=== PATIENT | female | born 1935 | race Caucasian/White ===

== ENCOUNTER 2016-09-10 12:29 | Inpatient (IN) | payer OTHER, MEDICARE ==
[2016-09-10 12:43] VITALS: BMI 15.6
[2016-09-10] MEDS ORDERED: SODIUM CHLORIDE 0.9% 1000 ML INFUS.BAG IV ONE (13:18)
[2016-09-10 13:56] LABS: BASOPHIL 0.4 % (0-2.0); MCH 29.5 pg (25.7-33.7); MCHC 33.9 g/dl (32.0-36.0); MEAN PLT VOLUME 8.3 fl (7.5-11.1); NEUTROPHILS 92.5 % (42.8-82.8); PLATELET COUNT 301 K/MM3 (134-434); RDW 12.5 % (11.6-15.6); WHITE BLOOD COUNT 19.5 K/mm3 (4.0-10.0)
--- NOTE | 2016-09-10 13:58 | PDOC ---
History of Present Illness - General Chief Complaint: Injury Stated Complaint: FALL Time Seen by Provider: 09/10/16 12:52 History Source: Patient, Family Exam Limitations: No Limitations - History of Present Illness Initial Comments: 09/10/16 13:44 The patient is a 81F with a PMH of MVP and bullous pemphigoid who presents to the ED after sustaining 2 falls. 1 week ago the patient tripped over a sidewalk which she normally walks on without problem and sustained injury to her R knee. She saw her PCP who prescribed tramadol and prednisone to help with swelling. This morning she rolled out of bed onto her L elbow and sustained a laceration to her L eyebrow, 2 cm in length. She states that she's had recent loss of balance. No LOC, blood thinners, no lightheadedness with today's fall. Allergies: NKDA Soc: Lives by herself, has an aide but family states she is taking less care of herself. 09/10/16 16:41 Past History - Past Medical History Allergies/Adverse Reactions: Allergies Allergy/AdvReac Type Severity Reaction Status Date / Time No Known Allergies Allergy Verified 09/10/16 12:43 Home Medications: Ambulatory Orders Bisacodyl Suppository [Dulcolax Suppository -] 10 mg RC PRN PRN 09/10/16 Dexamethasone [Decadron -] 0 mg PO DAILY 09/10/16 Furosemide [Lasix] 20 mg PO DAILY 09/10/16 Moxifloxacin HCl [Vigamox 0.5% Eye Drops -] 3 ml OD DAILY 09/10/16 Prednisone [Deltasone -] 5 mg PO TID 09/10/16 Timolol 0.5% [Timoptic 0.5%] 1 drop OD TID 09/10/16 Tramadol HCl 50 mg PO BID PRN 09/10/16 Thyroid Disease: Yes Other medical history: AUTOIMMUNE DISEASE. - Psycho/Social/Smoking Cessation Hx Anxiety: No Suicidal Ideation: No Smoking History: Never smoked Have you smoked in the past 12 months: No 'Breaking Loose' booklet given: 10/30/14 Hx Alcohol Use: No Drug/Substance Use Hx: No Substance Use Type: None Review of Systems - Review of Systems Able to Perform ROS?: Yes Is the patient limited Syriac proficient: No Constitutional: No: Chills, Fever HEENTM: No: Blurred Vision, Recent change in vision, Double Vision Respiratory: No: Shortness of Breath Cardiac (ROS): No: Chest Pain Neurological: No: Headache, Numbness, Tingling *Physical Exam - Vital Signs Last Vital Signs Temp Pulse Resp BP Pulse Ox 97.8 F 64 18 92/58 100 09/10/16 12:38 09/10/16 12:38 09/10/16 12:38 09/10/16 12:38 09/10/16 12:38 - Physical Exam General Appearance: Yes: Nourished, Thin. No: Mild Distress HEENT: positive: Normal Voice, Hearing Grossly Normal Respiratory/Chest: positive: Lungs Clear, Normal Breath Sounds. negative: Chest Tender, Respiratory Distress, Crackles, Rales, Rhonchi Cardiovascular: positive: Regular Rhythm, Regular Rate, S1, S2. negative: Tachycardia, Diastolic Murmur, Systolic Murmur Gastrointestinal/Abdominal: positive: Flat, Soft, Hernia, Other (R inguinal hernia, nontender). negative: Tender Extremity: positive: Other (Bruising over L elbow, more swollen than R elbow. No tenderness; no tenderness over R knee, swelling from R knee to R ankle). negative: Coldness, Cyanosis Integumentary: positive: Bruising (L elbow) Neurologic: positive: Fully Oriented, Alert, Normal Mood/Affect Procedures - Splinting Splint Location: Left: Elbow, Right: Knee Pre-Proc Neuro Vasc Exam: normal Pre-Made Type: knee immobilizer Hand-Made Type: orthoglass Splint Type: Yes: Short Arm Post-Proc Neuro Vasc Exam: normal Darvin Bandage: 3" Sling: Yes Complications: No - Laceration/Wound Repair Left Upper Face Wound Length: to 2.5 cm Wound Explored: clean Wound's Depth, Shape: superficial, irregular Irrigated w/ Saline: Yes Betadine Prep: No Anesthesia: 1% Lidocaine Amount of Anesthetic (ccs): 3 (cc) Wound Debrided: minimal Wound Repaired With: Sutures Suture Size/Type: 6:0 Number of Sutures: 5 Layer Closure: No Sterile Dressing Applied: Yes Splint Applied: No Sling Applied: No ED Treatment Course - LABORATORY CBC & Chemistry Diagram: 09/10/16 13:25 09/10/16 13:25 - RADIOLOGY Radiology Studies Ordered: Category Date Time Status HEAD CT WITHOUT CONTRAST [CT] Stat CT Scan 09/10/16 13:23 Ordered ELBOW-LEFT [RAD] Stat Radiology 09/10/16 13:16 Ordered KNEE 3 POS-RIGHT [RAD] Stat Radiology 09/10/16 13:16 Ordered - Medications Given in the ED: ED Medications Discontinued Medications Generic Name Dose Route Start Last Admin Trade Name Lorraine PRN Reason Stop Dose Admin Sodium Chloride 250 ml 09/10/16 13:18 09/10/16 13:37 Normal Saline - IV 09/10/16 13:19 250 ml ONCE ONE Administration Medical Decision Making - Medical Decision Making 09/10/16 14:10 The patient is a 81F with a hx of MVP and bullous pemphigoid who presents after sustaining 2 falls. The first fall was 1 week ago and she felt pain in her R knee. Second fall was today where she sustained a L eyebrow laceration and L elbow swelling. She is not tender at all. Family is concerned about her status and ability to walk and perform activities of daily living. Family states that the patient was admitted 2 year ago for failure to thrive. Family is concerned about continuous weakness and inability to walk/balance herself. I have ordered basic labs and imaging of all the appropriate/affected areas by her fall. 09/10/16 15:51 Patient has a WBC count of 19.5 Na: 123 K: 2.4 R patellar fracture L olecrenon fracture posteriorly I have ordered fluid replacement and K and mag replacement. I will be splinting her olecranon and placing her R leg in a splint. She will be admitted. 09/10/16 18:22 *DC/Admit/Observation/Transfer Diagnosis at time of Disposition: Hyponatremia, Hypokalemia, Fracture - Discharge Dispostion Condition at time of disposition: Stable Admit: Yes - Referrals Referrals: Mario Ng MD [Primary Care Provider] - - Attestations Physician Attestion: 09/10/16 16:46 I, Dr. Len Pittman, attest that this document has been prepared under my direction and personally reviewed by me in its entirety. I further attest, that it accurately reflects all work, treatment, procedures and medical decision -making performed by me.
[2016-09-10] MEDS ORDERED: DIPHTH,PERTUSS(ACELL),TET 0.5 ML DISP.SYRIN IM ONE (13:59)
[2016-09-10 14:37] LABS: ANION GAP 15 (8-16); CALCIUM 8.2 mg/dL (8.5-10.1); CO2 37 mmol/L (21-32); CREATININE 0.4 mg/dL (0.55-1.02); GLUCOSE,RANDOM 115 mg/dL (74-106); SGOT/AST 34 U/L (15-37); SGPT/ALT 31 U/L (12-78)
--- NOTE | 2016-09-10 14:37 | PDOC ---
Attending Attestation - Resident Resident Name: Len Pittman - ED Attending Attestation I have performed the following: I have examined & evaluated the patient, The case was reviewed & discussed with the resident, I agree w/resident's findings & plan, Exceptions are as noted - HPI HPI: 09/10/16 14:32 81-year-old female with past medical history of mitral valve prolapse presents with mechanical fall. Patient had fell one week ago and started developing right knee pain and swelling where she was treated with tramadol and prednisone. Today, patient mechanical fall and landed on her left side, about left elbow and sustained a small laceration to the left eyebrow. No loss of conscious. No headaches. Does not take any blood thinners. Came to the ED for further evaluation. Last tetanus status is unknown. - Physicial Exam PE: 09/10/16 14:35 GENERAL: Awake, alert, and fully oriented, in no acute distress. HEAD: No signs of trauma EYES: PERRLA, EOMI, sclera anicteric, conjunctiva clear ENT: Auricles normal inspection, hearing grossly normal, nares patent, oropharynx clear without exudates. NECK: Normal ROM, supple, no lymphadenopathy, JVD, or masses LUNGS: Breath sounds equal, clear to auscultation bilaterally. No wheezes, and no crackles HEART: Regular rate and rhythm, normal S1 and S2, no murmurs, rubs or gallops ABDOMEN: Soft, nontender, normoactive bowel sounds. No guarding, no rebound. No masses EXTREMITIES: Normal range of motion, no edema. LUE: 2+ radial pulse. sensation intact throughout. FROM Left elbow. Ecchymosis and swelling of left elbow. no tenderness elicited. RLE: mild edema R knee. Negative anterior, posterior drawer test. Negative varus and vagus. NEUROLOGICAL: Cranial nerves II through XII grossly intact. Normal speech, normal gait SKIN: Warm, Dry, normal turgor, no rashes or lesions noted. ~2 cm left lateral eyebrow laceration - Medical Decision Making 09/10/16 14:37 Vital Signs Temp Pulse Resp BP Pulse Ox 97.8 F 64 18 92/58 100 09/10/16 12:38 09/10/16 12:38 09/10/16 12:38 09/10/16 12:38 09/10/16 12:38 I agree with resident plan for head CT, left elbow xray and RLE ultrasound ( though I suspect R knee swelling is liklely to injury last week). Lac repair Update tetanus CBC, BMP 09/10/16 13:25 WBC 19.5 Will need to check UA for UTI (may be reason why patient is falling) 09/10/16 15:22 CMP Sodium 123 mmol/L (136-145) L* 09/10/16 13:25 Potassium 2.3 mmol/L (3.5-5.1) L* D 09/10/16 13:25 Chloride 71 mmol/L (98-107) L D 09/10/16 13:25 Carbon Dioxide 37 mmol/L (21-32) H D 09/10/16 13:25 Anion Gap 15 (8-16) 09/10/16 13:25 BUN 21 mg/dL (7-18) H D 09/10/16 13:25 Creatinine 0.4 mg/dL (0.55-1.02) L D 09/10/16 13:25 Creat Clearance w eGFR > 60 (>60) 09/10/16 13:25 Random Glucose 115 mg/dL (74-106) H 09/10/16 13:25 Calcium 8.2 mg/dL (8.5-10.1) L 09/10/16 13:25 Total Bilirubin 1.2 mg/dL (0.2-1.0) H D 09/10/16 13:25 AST 34 U/L (15-37) D 09/10/16 13:25 ALT 31 U/L (12-78) 09/10/16 13:25 Alkaline Phosphatase 49 U/L (45-117) D 09/10/16 13:25 Total Protein 5.6 g/dl (6.4-8.2) L 09/10/16 13:25 Albumin 3.0 g/dl (3.4-5.0) L D 09/10/16 13:25 Left elbow and right knee fracture. Will need to splint left elbow and place in R knee immobilizer. Ortho consultation UA pending. Needs admission. 09/10/16 16:38 Posterior elbow splint applied and R knee immoblizer placed.
[2016-09-10 14:39] LABS: ALK PHOS 49 U/L (45-117); BILIRUBIN,TOTAL 1.2 mg/dL (0.2-1.0); TOT PROT 5.6 g/dl (6.4-8.2)
[2016-09-10] MEDS ORDERED: POTASSIUM CHLORIDE TABS 20 MEQ TABLET.ER (FP) PO ONE ×4 (14:50→15:57)
[2016-09-10] MEDS ORDERED: MAGNESIUM SULF 50% (8.12 MEQ/2 ML-1 GM VIAL) IVPB ONE (14:51)
[2016-09-10] MEDS ORDERED: MAGNESIUM SULF 50% (8.12 MEQ/2 ML-1 GM VIAL) ONE (15:49)
[2016-09-10] MEDS ORDERED: MOXIFLOXACIN HCL 0.5% OPHTHALMIC 3 ML BOTTLE OD ONE (16:33)
[2016-09-10] MEDS ORDERED: TIMOLOL MALEATE 0.5% GFS OPHTHALMIC SOLN 5 ML BOTTLE OD ONE (16:33)
[2016-09-10 17:05] LABS: URINE APPEARANCE SLCLOUDY; URINE BILIRUBIN NEGATIVE (NEGATIVE); URINE BLOOD NEGATIVE (NEGATIVE); URINE COLOR AMBER; URINE GLUCOSE (UA) NEGATIVE (NEGATIVE); URINE KETONE NEGATIVE (NEGATIVE); URINE LEUK ESTERASE NEGATIVE (NEGATIVE); URINE NITRITE NEGATIVE (NEGATIVE); URINE PROTEIN NEGATIVE (NEGATIVE); URINE UROBILINOGEN NEGATIVE mg/dL (0.2-1.0)
[2016-09-10] MEDS ORDERED: ACETAMINOPHEN 325 MG TABLET (FP) PO PRN (19:59)
--- NOTE | 2016-09-10 22:16 | CON.CARD ---
Consult Consult Specialty:: Cardiology - History of Present Illness History of Present Illness: The patient is a 81F with a PMH of MVP and bullous pemphigoid who presents to the ED after sustaining 2 falls. 1 week ago the patient tripped over a sidewalk which she normally walks on without problem and sustained injury to her R knee. She saw her PCP who prescribed tramadol and prednisone to help with swelling. This morning she rolled out of bed onto her L elbow and sustained a laceration to her L eyebrow, 2 cm in length. She states that she's had recent loss of balance. No LOC, blood thinners, no lightheadedness with today's fall. Allergies: NKDA Soc: Lives by herself, has an aide but family states she is taking less care of herself. - History Source History Provided By: Patient, Medical Record - Past Medical History Cardio/Vascular: Yes: Mitral Insufficiency Infectious Disease: Yes: Other (SINUSITIS) Dermatology: Yes: Other (BOLLOUS PEMPHIGOID) - Alcohol/Substance Use Hx Alcohol Use: No - Smoking History Smoking history: Never smoked Have you smoked in the past 12 months: No Home Medications - Allergies Allergies/Adverse Reactions: Allergies Allergy/AdvReac Type Severity Reaction Status Date / Time No Known Allergies Allergy Verified 09/10/16 12:43 - Home Medications Home Medications: Ambulatory Orders Bisacodyl Suppository [Dulcolax Suppository -] 10 mg RC PRN PRN 09/10/16 Dexamethasone [Decadron -] 12 mg PO DAILY 09/10/16 Dorzolamide HCl [Trusopt 2%] 1 drop TID 09/10/16 Furosemide [Lasix] 20 mg PO DAILY 09/10/16 Moxifloxacin HCl [Vigamox 0.5% Eye Drops -] 3 ml OD DAILY 09/10/16 Mycophenolate Mofetil [Cellcept] 500 mg PO 09/10/16 Prednisolone 1% Ophthalmic [Pred Forte 1% -] 5 ml OP DAILY 09/10/16 Timolol 0.5% [Timoptic 0.5%] 1 drop OD DAILY 09/10/16 Tramadol HCl 50 mg PO BID PRN 09/10/16 Review of Systems - Review of Systems Constitutional: reports: No Symptoms Eyes: reports: No Symptoms HENT: reports: No Symptoms Neck: reports: No Symptoms Cardiovascular: reports: No Symptoms Gastrointestinal: reports: No Symptoms Genitourinary: reports: No Symptoms Breasts: reports: No Symptoms Reported Musculoskeletal: reports: No Symptoms Integumentary: reports: No Symptoms Neurological: reports: No Symptoms Endocrine: reports: No Symptoms Hematology/Lymphatic: reports: No Symptoms Psychiatric: reports: No Symptoms Vital Signs: Vital Signs Temperature 98.1 F 09/10/16 19:00 Pulse Rate 65 09/10/16 19:02 Respiratory Rate 18 09/10/16 19:02 Blood Pressure 108/63 09/10/16 19:02 O2 Sat by Pulse Oximetry (%) 98 09/10/16 19:02 Constitutional: Yes: Well Nourished, No Distress, Calm Eyes: Yes: WNL, Conjunctiva Clear, EOM Intact HENT: Yes: WNL, Atraumatic, Normocephalic Neck: Yes: WNL, Supple, Trachea Midline Respiratory: Yes: WNL, Regular, CTA Bilaterally Gastrointestinal: Yes: WNL, Normal Bowel Sounds Renal/: Yes: WNL Cardiovascular: Yes: Regular Rate and Rhythm Heart Sounds: Yes: S1, S2 Murmur: Yes: Systolic Murmur, Grade 2 Musculoskeletal: Yes: WNL Extremities: Yes: WNL Integumentary: Yes: WNL Neurological: Yes: WNL, Alert, Oriented ...Motor Strength: WNL Psychiatric: Yes: WNL, Alert, Oriented - Other Data Labs, Other Data: Laboratory Tests 09/10/16 09/10/16 09/10/16 13:25 13:25 16:40 WBC 19.5 H D RBC 4.08 Hgb 12.0 Hct 35.5 MCV 87.0 MCH 29.5 MCHC 33.9 RDW 12.5 D Plt Count 301 D MPV 8.3 D Neutrophils % 92.5 H Lymphocytes % 3.1 L D Monocytes % 4.0 Eosinophils % 0.0 Basophils % 0.4 Sodium 123 L* Potassium 2.3 L* D Chloride 71 L D Carbon Dioxide 37 H D Anion Gap 15 BUN 21 H D Creatinine 0.4 L D Creat Clearance w eGFR > 60 Random Glucose 115 H Calcium 8.2 L Total Bilirubin 1.2 H D AST 34 D ALT 31 Alkaline Phosphatase 49 D Total Protein 5.6 L Albumin 3.0 L D Urine Color Jaycee Urine Appearance Slcloudy Urine pH 7.0 Ur Specific [place] 1.015 Urine Protein Negative Urine Glucose (UA) Negative Urine Ketones Negative Urine Blood Negative Urine Nitrite Negative Urine Bilirubin Negative Urine Urobilinogen Negative Ur Leukocyte Esterase Negative 09/11/16 09/11/16 09/11/16 00:30 00:30 06:20 WBC 15.1 H 18.1 H RBC 3.89 4.15 Hgb 11.7 12.3 Hct 33.8 36.6 MCV 86.9 88.1 MCH 30.2 29.5 MCHC 34.8 33.5 RDW 12.8 12.5 Plt Count 312 287 MPV 7.8 7.9 Neutrophils % 84.1 H Lymphocytes % 7.0 L D Monocytes % 8.7 D Eosinophils % 0.1 D Basophils % 0.1 Sodium 127 L Potassium 2.9 L* D Chloride 82 L D Carbon Dioxide 33 H Anion Gap 12 BUN 15 D Creatinine 0.6 D Creat Clearance w eGFR > 60 Random Glucose 132 H Calcium 7.9 L Total Bilirubin 0.9 D AST 20 D ALT 26 Alkaline Phosphatase 51 Total Protein 5.0 L Albumin 2.7 L Urine Color Urine Appearance Urine pH Ur Specific [place] Urine Protein Urine Glucose (UA) Urine Ketones Urine Blood Urine Nitrite Urine Bilirubin Urine Urobilinogen Ur Leukocyte Esterase Imaging - Results EKG: Image Reviewed (sr rep abn) Problem List - Problems (1) Abnormal CXR Code(s): R93.8 - ABNORMAL FINDINGS ON DIAGNOSTIC IMAGING OF BODY STRUCTURES (2) Bullous pemphigoid Code(s): L12.0 - BULLOUS PEMPHIGOID (3) Edema Code(s): R60.9 - EDEMA, UNSPECIFIED (4) Fracture Code(s): T14.8 - OTHER INJURY OF UNSPECIFIED BODY REGION (5) Heart murmur Code(s): R01.1 - CARDIAC MURMUR, UNSPECIFIED (6) Hypokalemia Code(s): E87.6 - HYPOKALEMIA (7) Hyponatremia Code(s): E87.1 - HYPO-OSMOLALITY AND HYPONATREMIA (8) Valvular heart disease Code(s): I38 - ENDOCARDITIS, VALVE UNSPECIFIED Assessment/Plan imp; MVP severe MR ? MV veg. pulm HTN s/p falls hyponatremia leukocytosis chf plan cxr IV lasix free water restriction ID/renal w/u repeat the echo cont telemetry
[2016-09-10] MEDS: TIMOLOL 0.5% OPHTHALMIC SOL 5 ML BOTTLE OD SCH (22:57)
[2016-09-10] MEDS: predniSONE 5 MG TABLET (UD) PO SCH (22:58)
[2016-09-10] MEDS: traMADol HCL 50 MG TABLET PO PRN (22:58)
[2016-09-10] MEDS: BISACODYL 10 MG SUPP.RECT RC PRN (22:58)
[2016-09-10] MEDS: SODIUM CHLORIDE 1,000 ML IV SCH (23:08)
[2016-09-11 00:44] LABS: MCH 30.2 pg (25.7-33.7); MCHC 34.8 g/dl (32.0-36.0); MEAN CELL VOLUME 86.9 fl (80-96); MEAN PLT VOLUME 7.8 fl (7.5-11.1); PLATELET COUNT 312 K/MM3 (134-434); RDW 12.8 % (11.6-15.6); WHITE BLOOD COUNT 15.1 K/mm3 (4.0-10.0)
[2016-09-11 01:26] LABS: ALBUMIN 2.7 g/dl (3.4-5.0); ANION GAP 12 (8-16); BILIRUBIN,TOTAL 0.9 mg/dL (0.2-1.0); CALCIUM 7.9 mg/dL (8.5-10.1); CO2 33 mmol/L (21-32); CREATININE 0.6 mg/dL (0.55-1.02); GLUCOSE,RANDOM 132 mg/dL (74-106); SGOT/AST 20 U/L (15-37); SGPT/ALT 26 U/L (12-78)
[2016-09-11 01:27] LABS: ALK PHOS 51 U/L (45-117)
[2016-09-11] MEDS ORDERED: POTASSIUM CHLORIDE ORAL LIQUID 20 MEQ/15 ML PO ONE (01:45)
[2016-09-11] MEDS: KCL 10 MEQ IVPB 100 ML IVPB SCH ×3 (01:57→04:45)
[2016-09-11] MEDS: TIMOLOL 0.5% OPHTHALMIC SOL 5 ML BOTTLE OD SCH ×3 (06:15→22:30)
[2016-09-11] MEDS: predniSONE 5 MG TABLET (UD) PO SCH ×3 (06:15→22:29)
[2016-09-11 07:20] LABS: BASOPHIL 0.1 % (0-2.0); EOSINOPHIL 0.1 % (0-4.5); MCH 29.5 pg (25.7-33.7); MCHC 33.5 g/dl (32.0-36.0); MEAN CELL VOLUME 88.1 fl (80-96); MEAN PLT VOLUME 7.9 fl (7.5-11.1); NEUTROPHILS 84.1 % (42.8-82.8); PLATELET COUNT 287 K/MM3 (134-434); RDW 12.5 % (11.6-15.6); WHITE BLOOD COUNT 18.1 K/mm3 (4.0-10.0)
--- NOTE | 2016-09-11 08:48 | PN ---
Progress Note, Physician History of Present Illness: The patient is a 81F with a PMH of MVP and bullous pemphigoid who presents to the ED after sustaining 2 falls. 1 week ago the patient tripped over a sidewalk which she normally walks on without problem and sustained injury to her R knee. She saw her PCP who prescribed tramadol and prednisone to help with swelling. This morning she rolled out of bed onto her L elbow and sustained a laceration to her L eyebrow, 2 cm in length. She states that she's had recent loss of balance. No LOC, blood thinners, no lightheadedness with today's fall. Allergies: NKDA Soc: Lives by herself, has an aide but family states she is taking less care of herself. - Current Medication List Current Medications: Active Medications Acetaminophen (Tylenol -) 650 mg PO Q4H PRN PRN Reason: FEVER OR PAIN Bisacodyl (Dulcolax Suppository -) 10 mg RC PRN PRN PRN Reason: no bowel movement Last Admin: 09/10/16 22:58 Dose: 10 mg Furosemide (Lasix -) 20 mg PO DAILY [facility] Sodium Chloride (Normal Saline -) 1,000 mls @ 75 mls/hr IV ASDIR [facility] Last Admin: 09/10/16 23:08 Dose: 75 mls/hr Moxifloxacin HCl (Vigamox 0.5% Eye Drops -) 1 drop OD DAILY [facility] Prednisone (Deltasone -) 5 mg PO TID [facility] Last Admin: 09/11/16 06:15 Dose: Not Given Timolol Maleate (Timoptic 0.5%) 1 drop OD TID [facility] Last Admin: 09/11/16 06:15 Dose: Not Given Tramadol HCl (Ultram -) 50 mg PO BID PRN PRN Reason: PAIN Last Admin: 09/10/16 22:58 Dose: 50 mg - Objective Vital Signs: Vital Signs Temperature 98.4 F 09/11/16 06:00 Pulse Rate 62 09/11/16 06:00 Respiratory Rate 18 09/11/16 06:00 Blood Pressure 92/52 09/11/16 06:00 O2 Sat by Pulse Oximetry (%) 99 09/10/16 22:27 Eyes: Yes: WNL, Conjunctiva Clear, EOM Intact HENT: Yes: WNL, Atraumatic, Normocephalic Neck: Yes: WNL, Supple, Trachea Midline Cardiovascular: Yes: Regular Rate and Rhythm, Murmur, S1, S2 Respiratory: Yes: WNL, Regular, CTA Bilaterally Gastrointestinal: Yes: WNL, Normal Bowel Sounds Genitourinary: Yes: WNL Musculoskeletal: Yes: WNL Extremities: Yes: WNL Edema: No Integumentary: Yes: WNL Neurological: Yes: WNL, Alert, Oriented ...Motor Strength: WNL Psychiatric: Yes: WNL Labs: CBC, BMP 09/11/16 06:20 09/11/16 00:30 Problem List - Problems (1) Abnormal CXR Code(s): R93.8 - ABNORMAL FINDINGS ON DIAGNOSTIC IMAGING OF BODY STRUCTURES (2) Bullous pemphigoid Code(s): L12.0 - BULLOUS PEMPHIGOID (3) Edema Code(s): R60.9 - EDEMA, UNSPECIFIED (4) Fracture Code(s): T14.8 - OTHER INJURY OF UNSPECIFIED BODY REGION (5) Heart murmur Code(s): R01.1 - CARDIAC MURMUR, UNSPECIFIED (6) Hypokalemia Code(s): E87.6 - HYPOKALEMIA (7) Hyponatremia Code(s): E87.1 - HYPO-OSMOLALITY AND HYPONATREMIA (8) Valvular heart disease Code(s): I38 - ENDOCARDITIS, VALVE UNSPECIFIED Assessment/Plan imp; MVP severe MR ? MV veg. pulm HTN s/p falls hyponatremia leukocytosis chf plan cxr IV lasix free water restriction ID/renal w/u repeat the echo cont telemetry
[2016-09-11] MEDS ORDERED: PT OWN MED DRAWER 7, Y5N ONE ×3 (09:23→22:12)
[2016-09-11] MEDS: MOXIFLOXACIN HCL 0.5% OPHTHALMIC 3 ML BOTTLE OD SCH (09:34)
[2016-09-11 09:59] LABS: ALBUMIN 2.7 g/dl (3.4-5.0); ANION GAP 8 (8-16); CO2 32 mmol/L (21-32); GLUCOSE,RANDOM 97 mg/dL (74-106); MAGNESIUM 2.9 mg/dL (1.8-2.4)
[2016-09-11] MEDS ORDERED: FUROSEMIDE 20 MG TABLET (FP) PO SCH (10:00)
[2016-09-11] MEDS ORDERED: FUROSEMIDE 40 MG/4 ML INJECTABLE VIAL IVPB SCH (10:00)
[2016-09-11 10:04] LABS: ALK PHOS 47 U/L (45-117); BILIRUBIN,TOTAL 0.8 mg/dL (0.2-1.0); CHOLESTEROL 172 mg/dL (50-200); CREATININE 0.4 mg/dL (0.55-1.02); LDL CHOLESTEROL (ONLY SJRH) 88 mg/dL (5-100); SGOT/AST 22 U/L (15-37); SGPT/ALT 28 U/L (12-78); TOT PROT 5.3 g/dl (6.4-8.2); TROPONIN I < 0.02 ng/ml (0.00-0.05)
--- NOTE | 2016-09-11 11:56 | CON.NEP ---
Consult Consult Specialty:: Nephrology Reason for Consultation:: multiple electrolyte abn- hyponatremia and hypokalemia - History of Present Illness Chief Complaint: s/p fall- felt well prior to that History of Present Illness: s/p fall labs on admission show severe hyponatremia Na 123 and hypokalemia 2.3 she denies decreased appetite or food intake, she has been on furosemide and one month ago was told that her sodium and potassium were low she also denies any change in physical well being prior to the fall, indepent with adls and went line dancing with her sister ias a pastime cardiology eval noted she has history of mvp she is concerned about glaucoma and for that reason avoids sweetened foods or juices - History Source History Provided By: Patient, Medical Record Limitations to Obtaining History: No Limitations - Past Medical History Cardio/Vascular: Yes: Mitral Insufficiency Infectious Disease: Yes: Other (SINUSITIS) Dermatology: Yes: Other (BOLLOUS PEMPHIGOID) - Alcohol/Substance Use Hx Alcohol Use: No - Smoking History Smoking history: Never smoked Have you smoked in the past 12 months: No Home Medications - Allergies Allergies/Adverse Reactions: Allergies Allergy/AdvReac Type Severity Reaction Status Date / Time No Known Allergies Allergy Verified 09/10/16 12:43 - Home Medications Home Medications: Ambulatory Orders Bisacodyl Suppository [Dulcolax Suppository -] 10 mg RC PRN PRN 09/10/16 Dexamethasone [Decadron -] 12 mg PO DAILY 09/10/16 Dorzolamide HCl [Trusopt 2%] 1 drop TID 09/10/16 Furosemide [Lasix] 20 mg PO DAILY 09/10/16 Moxifloxacin HCl [Vigamox 0.5% Eye Drops -] 3 ml OD DAILY 09/10/16 Mycophenolate Mofetil [Cellcept] 500 mg PO 09/10/16 Prednisolone 1% Ophthalmic [Pred Forte 1% -] 5 ml OP DAILY 09/10/16 Timolol 0.5% [Timoptic 0.5%] 1 drop OD DAILY 09/10/16 Tramadol HCl 50 mg PO BID PRN 09/10/16 Review of Systems - Review of Systems Constitutional: reports: No Symptoms Eyes: reports: No Symptoms HENT: reports: No Symptoms Neck: reports: No Symptoms Cardiovascular: reports: No Symptoms Respiratory: reports: No Symptoms Gastrointestinal: reports: No Symptoms Genitourinary: reports: No Symptoms Breasts: reports: No Symptoms Reported Musculoskeletal: reports: No Symptoms Integumentary: reports: No Symptoms Neurological: reports: No Symptoms Endocrine: reports: No Symptoms Hematology/Lymphatic: reports: No Symptoms Psychiatric: reports: No Symptoms Nephrology Consult - Height Height: 5 ft - Weight Weight: 80 lb - BMI Body Mass Index (BMI): 15.6 - Lab Results CBC,BMP: CBC, BMP 09/11/16 06:20 09/11/16 08:40 Anion Gap: Anion Gap Anion Gap 8 (8-16) 09/11/16 08:40 - Physical Examination Vital Signs: Vital Signs Temperature 98.2 F 09/11/16 10:00 Pulse Rate 70 09/11/16 10:00 Respiratory Rate 18 09/11/16 10:00 Blood Pressure 89/56 09/11/16 10:00 O2 Sat by Pulse Oximetry (%) 94 L 09/11/16 09:00 Constitutional: Yes: Thin Eyes: No: Conjunctiva Clear (conjunctival hemorrhage) HENT: Yes: Other (left lateral periorbital hematoma) Neck: Yes: WNL Cardiovascular: Yes: WNL Respiratory: Yes: WNL Gastrointestinal: Yes: WNL Renal/: Yes: WNL Musculoskeletal: Yes: WNL Extremities: Yes: Other (right knee) Problem List - Problems (1) Fracture Assessment/Plan: patellar and left elbow fx's pending ortho eval for definitive mgmt Code(s): T14.8 - OTHER INJURY OF UNSPECIFIED BODY REGION (2) Hypokalemia Assessment/Plan: probably 2/2 to diuretic therapy and/or dietary eccentricities very likely total body depleted improving with replacement IV will continue to replace orally and IV follow up labs tomorrow Code(s): E87.6 - HYPOKALEMIA (3) Hyponatremia Assessment/Plan: clinically dehydrated may have high adh from hypovolemia and concomittent effect of diuretic tx initial improvement on IV NS will order lab eval and follow trends Code(s): E87.1 - HYPO-OSMOLALITY AND HYPONATREMIA (4) Valvular heart disease Assessment/Plan: question of mv disease being eval by semiconductor processing technician does not seem to contribute to electrolyte abnormalities, or complicate corrective measures so far Code(s): I38 - ENDOCARDITIS, VALVE UNSPECIFIED (5) Protein calorie malnutrition Assessment/Plan: very low serum albumin and low body weight may be a reflection of inadequate nutrition will order shipyard painter helper eval and possible nutrition supplement Code(s): E46 - UNSPECIFIED PROTEIN-CALORIE MALNUTRITION Assessment/Plan see problem list with assessments
[2016-09-11 13:04] LABS: URIC ACID 3.9 mg/dL (2.6-7.2)
[2016-09-11 13:11] LABS: THYROID STIMULATING HORMONE 1.11 uIU/ml (0.358-3.74)
--- NOTE | 2016-09-11 15:42 | HP ---
Admitting History and Physical - Primary Care Physician PCP: Mario Ng - Admission Chief Complaint: FALL, hypokalemia and hyponatremia History of Present Illness: The patient is a 81F with a PMH of MVP and bullous pemphigoid who presented to the ED after sustaining 2 falls. 1 week ago the patient tripped over a sidewalk which she normally walks on without problem and sustained injury to her R knee. She saw her PCP who prescribed tramadol and dexamethasone to help with swelling. She is already on prednisone for bullous pemphigoid. Yesterday morning she rolled out of bed onto her L elbow and sustained a laceration to her L eyebrow, 2 cm in length. She states that she's had recent loss of balance. No LOC, blood thinners, no lightheadedness with today's fall. History Source: Patient, Medical Record Limitations to Obtaining History: No Limitations - Past Medical History Cardiovascular: Yes: Mitral Insufficiency Infectious Disease: Yes: Other (SINUSITIS) Dermatology: Yes: Other (BOLLOUS PEMPHIGOID) - Advance Directives Advance Directives: Yes: Health Care Proxy, DNR - Smoking History Smoking history: Never smoked Have you smoked in the past 12 months: No - Alcohol/Substance Use Hx Alcohol Use: No Home Medications - Allergies Allergies/Adverse Reactions: Allergies Allergy/AdvReac Type Severity Reaction Status Date / Time No Known Allergies Allergy Verified 09/10/16 12:43 - Home Medications Home Medications: Ambulatory Orders Bisacodyl Suppository [Dulcolax Suppository -] 10 mg RC PRN PRN 09/10/16 Dexamethasone [Decadron -] 12 mg PO DAILY 09/10/16 Dorzolamide HCl [Trusopt 2%] 1 drop TID 09/10/16 Furosemide [Lasix] 20 mg PO DAILY 09/10/16 Moxifloxacin HCl [Vigamox 0.5% Eye Drops -] 3 ml OD DAILY 09/10/16 Mycophenolate Mofetil [Cellcept] 500 mg PO 09/10/16 Prednisolone 1% Ophthalmic [Pred Forte 1% -] 5 ml OP DAILY 09/10/16 Timolol 0.5% [Timoptic 0.5%] 1 drop OD DAILY 09/10/16 Tramadol HCl 50 mg PO BID PRN 09/10/16 Review of Systems - Review of Systems Constitutional: reports: No Symptoms Eyes: reports: No Symptoms HENT: reports: No Symptoms Neck: reports: No Symptoms Cardiovascular: reports: No Symptoms Respiratory: reports: No Symptoms Gastrointestinal: reports: No Symptoms Genitourinary: reports: No Symptoms Breasts: reports: No Symptoms Reported Musculoskeletal: reports: Decreased ROM, Joint Pain Integumentary: reports: No Symptoms Neurological: reports: Other (falls x 2) Endocrine: reports: No Symptoms Hematology/Lymphatic: reports: No Symptoms Psychiatric: reports: No Symptoms Physical Examination Vital Signs: Vital Signs Temperature 99 F 09/11/16 13:51 Pulse Rate 67 09/11/16 13:51 Respiratory Rate 18 09/11/16 13:51 Blood Pressure 88/52 09/11/16 13:51 O2 Sat by Pulse Oximetry (%) 94 L 09/11/16 09:00 Constitutional: Yes: Well Nourished, No Distress, Calm Eyes: Yes: Other (left eye conjunctivitis with purulent drainage, conjunctival hemorrhage) Cardiovascular: Yes: Regular Rate and Rhythm Respiratory: Yes: Regular Gastrointestinal: Yes: Normal Bowel Sounds, Soft Labs: CBC, BMP 09/11/16 06:20 09/11/16 08:40 Imaging - Results Chest X-ray: Report Reviewed X-ray: Report Reviewed (knee) Ultrasound: Report Reviewed (carotid) Problem List - Problems (1) Fracture Assessment/Plan: -right comminuted fracture of patella with intra-articular involvement -left avulsion fracture of ulnar olecranon with significant surrounding soft tissue edema -orthopedic consult Code(s): T14.8 - OTHER INJURY OF UNSPECIFIED BODY REGION (2) Hypokalemia Assessment/Plan: -normalized -seen by renal -repeat labs in AM Code(s): E87.6 - HYPOKALEMIA (3) Hyponatremia Assessment/Plan: originally seemed to be improving, continue to monitor Code(s): E87.1 - HYPO-OSMOLALITY AND HYPONATREMIA (4) Protein calorie malnutrition Assessment/Plan: -to be seen by RD -encourage po intake Code(s): E46 - UNSPECIFIED PROTEIN-CALORIE MALNUTRITION (5) Valvular heart disease Assessment/Plan: seen by cardiology echo ordered Code(s): I38 - ENDOCARDITIS, VALVE UNSPECIFIED (6) Leukocytosis Assessment/Plan: likely secondary to steroids UC pending Code(s): D72.829 - ELEVATED WHITE BLOOD CELL COUNT, UNSPECIFIED Assessment/Plan -IV fluids -monitor labs -Nephrology and cardiology consult appreciated -awaiting orthopedic consult -Nutrition consult -DNR -safety precautions -cipro ophthalmic -immobilizer
--- NOTE | 2016-09-11 17:42 | CON.ORTH ---
Consult Consult Specialty:: Orthopedics Reason for Consultation:: right patellar, left olecranon fractures - History of Present Illness Chief Complaint: right knee, left elbow pain History of Present Illness: 81y F admitted after a second fall in 1 week -injured R knee during first fall, treated with pain medication, steroids -injured L elbow during second fall -denies syncopal sx -pain only in elbow, knee, denies pain elsewhere -no numbness, tingling - History Source History Provided By: Patient, Medical Record Limitations to Obtaining History: No Limitations - Past Medical History Cardio/Vascular: Yes: Mitral Insufficiency Infectious Disease: Yes: Other (SINUSITIS) Dermatology: Yes: Other (BOLLOUS PEMPHIGOID) - Alcohol/Substance Use Hx Alcohol Use: No - Smoking History Smoking history: Never smoked Have you smoked in the past 12 months: No Home Medications - Allergies Allergies/Adverse Reactions: Allergies Allergy/AdvReac Type Severity Reaction Status Date / Time No Known Allergies Allergy Verified 09/10/16 12:43 - Home Medications Home Medications: Ambulatory Orders Bisacodyl Suppository [Dulcolax Suppository -] 10 mg RC PRN PRN 09/10/16 Dexamethasone [Decadron -] 12 mg PO DAILY 09/10/16 Dorzolamide HCl [Trusopt 2%] 1 drop TID 09/10/16 Furosemide [Lasix] 20 mg PO DAILY 09/10/16 Moxifloxacin HCl [Vigamox 0.5% Eye Drops -] 3 ml OD DAILY 09/10/16 Mycophenolate Mofetil [Cellcept] 500 mg PO 09/10/16 Prednisolone 1% Ophthalmic [Pred Forte 1% -] 5 ml OP DAILY 09/10/16 Timolol 0.5% [Timoptic 0.5%] 1 drop OD DAILY 09/10/16 Tramadol HCl 50 mg PO BID PRN 09/10/16 Review of Systems - Review of Systems Constitutional: denies: Chills, Diaphoresis, Fever Eyes: denies: Blind Spots, Blurred Vision, Double Vision HENT: denies: Difficult Swallowing, Ear Discharge, Ear Pain Neck: denies: Decreased ROM, Pain on Movement, Stiffness Cardiovascular: denies: Chest Pain, Palpitations Respiratory: denies: Cough Gastrointestinal: denies: Abdominal Pain, Bloating, Constipation Physical Exam for Ortho Vital Signs: Vital Signs Temperature 99 F 09/11/16 13:51 Pulse Rate 67 09/11/16 13:51 Respiratory Rate 18 09/11/16 13:51 Blood Pressure 88/52 09/11/16 13:51 O2 Sat by Pulse Oximetry (%) 94 L 09/11/16 09:00 Constitutional: Yes: Well Nourished, No Distress, Calm Labs: CBC, BMP 09/11/16 06:20 09/11/16 08:40 - Upper Extremity Elbow: Yes: Left, Ecchymosis, Limited ROM, Swelling, Tenderness. No: Abrasion, Deformity - Lower Extremity Knee: Yes: Right, Limited ROM, Pain, Swelling, Tenderness. No: Abrasion, Deformity, Ecchymosis - Affected Extremity Peripheral Pulses: 2+ Right Dorsalis Pedis, 2+ Left Radial Other Findings/Remarks: R ehl fhl ta g s intact L thumbs up, ok sign, finger cross intact Imaging - Results X-ray: Report Reviewed, Image Reviewed (R knee shows a comminuted patellar fracture, minimally displaced. L elbow shows a displaced fracture of the olecranon.) Problem List - Problems (1) Closed olecranon fracture Code(s): S52.023A - DISP FX OF OLECRAN PRO W/O INTARTIC EXTN UNSP ULNA, INIT Qualifiers: Encounter type: initial encounter Laterality: left Qualified Code(s): S52.022A - Displaced fracture of olecranon process without intraarticular extension of left ulna, initial encounter for closed fracture (2) Patellar fracture Code(s): S82.009A - UNSP FRACTURE OF UNSP PATELLA, INIT FOR CLOS FX Qualifiers : Encounter type: initial encounter Fracture type: closed Fracture morphology: comminuted Fracture alignment: nondisplaced Laterality: right Qualified Code(s): S82.044A - Nondisplaced comminuted fracture of right patella, initial encounter for closed fracture Assessment/Plan I reviewed today's findings with the patient. Regarding her right patellar fracture: -fracture sits in minimally displaced alignment -no need for surgical intervention -when transferring or ambulating, use knee immobilizer -ok to remove immobilizer when in bed to avoid skin pressure sores -may wbat with assistance Regarding her left olecranon fracture: -advised that the fracture is widely displaced and is best treated with surgery -alternative: nonop care - will lead to chronic triceps insufficiency, possibly joint instability -benefits: restore active extension -risks: bleeding, infection, neurovascular injury, need for further surgery, post op pain, stiffness, loss of motion, heart attack, stroke, DVT, PE, -patient would like to proceed -at this time, is not medically optimized, no urgency to surgery, can occur optimally within the next 3 weeks
[2016-09-11] MEDS: CIPROFLOXACIN HCL 0.3% OPHTH 2.5ML BOTTLE OS SCH ×2 (17:59→22:30)
[2016-09-11] MEDS: SODIUM CHLORIDE 1,000 ML IV SCH (22:29)
[2016-09-12] MEDS ORDERED: PT OWN MED DRAWER 7, Y5N ONE ×5 (06:25→21:13)
[2016-09-12] MEDS: predniSONE 5 MG TABLET (UD) PO SCH ×3 (06:32→21:20)
[2016-09-12] MEDS: CIPROFLOXACIN HCL 0.3% OPHTH 2.5ML BOTTLE OS SCH ×5 (06:33→21:21)
[2016-09-12] MEDS: TIMOLOL 0.5% OPHTHALMIC SOL 5 ML BOTTLE OD SCH ×3 (06:33→21:21)
--- NOTE | 2016-09-12 08:13 | EKG ---
Test Reason : Blood Pressure : / mmHG Vent. Rate : 068 BPM Atrial Rate : 068 BPM P-R Int : 174 ms QRS Dur : 098 ms QT Int : 506 ms P-R-T Axes : 075 -04 116 degrees QTc Int : 538 ms POOR DATA QUALITY, INTERPRETATION MAY BE ADVERSELY AFFECTED SINUS RHYTHM WITH PREMATURE ATRIAL COMPLEXES LEFT VENTRICULAR HYPERTROPHY WITH REPOLARIZATION ABNORMALITY ABNORMAL ECG WHEN COMPARED WITH ECG OF 29-OCT-2014 20:06, QRS DURATION HAS INCREASED ST NOW DEPRESSED IN LATERAL LEADS T WAVE INVERSION LESS EVIDENT IN INFERIOR LEADS T WAVE INVERSION NOW EVIDENT IN ANTEROLATERAL LEADS QT HAS LENGTHENED Confirmed by JORGE CANDELARIO, MARIA C ([id number]) on 09/12/2016 8:13:03 AM Referred By: Confirmed By:MARIA C PATLE MD
--- NOTE | 2016-09-12 08:33 | PN ---
Progress Note, Physician History of Present Illness: The patient is a 81F with a PMH of MVP and bullous pemphigoid who presents to the ED after sustaining 2 falls. 1 week ago the patient tripped over a sidewalk which she normally walks on without problem and sustained injury to her R knee. She saw her PCP who prescribed tramadol and prednisone to help with swelling. This morning she rolled out of bed onto her L elbow and sustained a laceration to her L eyebrow, 2 cm in length. She states that she's had recent loss of balance. No LOC, blood thinners, no lightheadedness with today's fall. Allergies: NKDA Soc: Lives by herself, has an aide but family states she is taking less care of herself. - Current Medication List Current Medications: Active Medications Acetaminophen (Tylenol -) 650 mg PO Q4H PRN PRN Reason: FEVER OR PAIN Bisacodyl (Dulcolax Suppository -) 10 mg RC PRN PRN PRN Reason: no bowel movement Last Admin: 09/10/16 22:58 Dose: 10 mg Ciprofloxacin (Ciloxan 0.3% Eye Drops -) 2 drop OS Q4HWA [facility] Last Admin: 09/12/16 06:33 Dose: 2 drop Sodium Chloride (Normal Saline -) 1,000 mls @ 75 mls/hr IV ASDIR [facility] Last Admin: 09/11/16 22:29 Dose: 75 mls/hr Moxifloxacin HCl (Vigamox 0.5% Eye Drops -) 1 drop OD DAILY [facility] Last Admin: 09/11/16 09:34 Dose: Not Given Prednisone (Deltasone -) 5 mg PO TID [facility] Last Admin: 09/12/16 06:32 Dose: 5 mg Timolol Maleate (Timoptic 0.5%) 1 drop OD TID [facility] Last Admin: 09/12/16 06:33 Dose: 1 drop Tramadol HCl (Ultram -) 50 mg PO BID PRN PRN Reason: PAIN Last Admin: 09/10/16 22:58 Dose: 50 mg - Objective Vital Signs: Vital Signs Temperature 97.4 F L 09/12/16 06:00 Pulse Rate 59 L 09/12/16 06:00 Respiratory Rate 20 09/12/16 06:00 Blood Pressure 100/57 09/12/16 06:00 O2 Sat by Pulse Oximetry (%) 98 09/11/16 21:00 Eyes: Yes: WNL, Conjunctiva Clear, EOM Intact HENT: Yes: WNL, Atraumatic, Normocephalic Neck: Yes: WNL, Supple, Trachea Midline Cardiovascular: Yes: WNL, Regular Rate and Rhythm Respiratory: Yes: WNL, Regular, CTA Bilaterally Gastrointestinal: Yes: WNL, Normal Bowel Sounds Genitourinary: Yes: WNL Musculoskeletal: Yes: WNL Extremities: Yes: WNL Edema: No Integumentary: Yes: WNL Neurological: Yes: WNL, Alert, Oriented ...Motor Strength: WNL Psychiatric: Yes: WNL Labs: CBC, BMP 09/11/16 06:20 09/11/16 08:40 Problem List - Problems (1) Abnormal CXR Code(s): R93.8 - ABNORMAL FINDINGS ON DIAGNOSTIC IMAGING OF BODY STRUCTURES (2) Bullous pemphigoid Code(s): L12.0 - BULLOUS PEMPHIGOID (3) Edema Code(s): R60.9 - EDEMA, UNSPECIFIED (4) Fracture Code(s): T14.8 - OTHER INJURY OF UNSPECIFIED BODY REGION (5) Heart murmur Code(s): R01.1 - CARDIAC MURMUR, UNSPECIFIED (6) Hypokalemia Code(s): E87.6 - HYPOKALEMIA (7) Hyponatremia Code(s): E87.1 - HYPO-OSMOLALITY AND HYPONATREMIA (8) Valvular heart disease Code(s): I38 - ENDOCARDITIS, VALVE UNSPECIFIED Assessment/Plan imp; MVP severe MR ? MV veg. pulm HTN s/p falls hyponatremia leukocytosis chf left olecranon fracture- will need surgical repair plan; cxr IV lasix free water restriction ID/renal w/u repeat the echo cont telemetry
[2016-09-12] MEDS: MOXIFLOXACIN HCL 0.5% OPHTHALMIC 3 ML BOTTLE OD SCH (10:04)
[2016-09-12 10:07] LABS: MCH 29.9 pg (25.7-33.7); MCHC 33.2 g/dl (32.0-36.0); MEAN CELL VOLUME 90.1 fl (80-96); PLATELET COUNT 270 K/MM3 (134-434); RDW 13.3 % (11.6-15.6); WHITE BLOOD COUNT 21.6 K/mm3 (4.0-10.0)
[2016-09-12 10:20] LABS: ALBUMIN 2.6 g/dl (3.4-5.0); ALK PHOS 52 U/L (45-117); ANION GAP 7 (8-16); BILIRUBIN,TOTAL 0.8 mg/dL (0.2-1.0); CALCIUM 7.9 mg/dL (8.5-10.1); CO2 29 mmol/L (21-32); CREATININE 0.4 mg/dL (0.55-1.02); GLUCOSE,RANDOM 135 mg/dL (74-106); SGOT/AST 19 U/L (15-37); SGPT/ALT 25 U/L (12-78)
[2016-09-12 11:11] LABS: PLATELET ESTIMATE ADEQUATE (NORMAL)
--- NOTE | 2016-09-12 15:16 | CON.NEURO ---
Consult - History of Present Illness History of Present Illness: 81 Year old female history of bullous pemphigoid and presented with two falls. first one was on july 02, when she tripped over due to crack. Second one just before she came to hospital for right knee injury and left elbow injury. Antonio is waiting to get operated. She denies any dizziness or balance difficulty , weakness or loss of consiousness . - Past Medical History Cardio/Vascular: Yes: Mitral Insufficiency Infectious Disease: Yes: Other (SINUSITIS) Dermatology: Yes: Other (BOLLOUS PEMPHIGOID) - Alcohol/Substance Use Hx Alcohol Use: No - Smoking History Smoking history: Never smoked Have you smoked in the past 12 months: No Home Medications - Allergies Allergies/Adverse Reactions: Allergies Allergy/AdvReac Type Severity Reaction Status Date / Time No Known Allergies Allergy Verified 09/10/16 12:43 - Home Medications Home Medications: Ambulatory Orders Bisacodyl Suppository [Dulcolax Suppository -] 10 mg RC PRN PRN 09/10/16 Dexamethasone [Decadron -] 12 mg PO DAILY 09/10/16 Dorzolamide HCl [Trusopt 2%] 1 drop TID 09/10/16 Furosemide [Lasix] 20 mg PO DAILY 09/10/16 Moxifloxacin HCl [Vigamox 0.5% Eye Drops -] 3 ml OD DAILY 09/10/16 Mycophenolate Mofetil [Cellcept] 500 mg PO 09/10/16 Prednisolone 1% Ophthalmic [Pred Forte 1% -] 5 ml OP DAILY 09/10/16 Timolol 0.5% [Timoptic 0.5%] 1 drop OD DAILY 09/10/16 Tramadol HCl 50 mg PO BID PRN 09/10/16 Physical Exam-Neuro Vital Signs: Vital Signs Temperature 97.8 F 09/12/16 10:00 Pulse Rate 67 09/12/16 10:00 Respiratory Rate 20 09/12/16 10:00 Blood Pressure 99/60 09/12/16 10:00 O2 Sat by Pulse Oximetry (%) 97 09/12/16 09:00 Labs: CBC, BMP 09/12/16 09:20 09/12/16 09:20 NIH Stroke Scale - Total Score NIH Stroke Scale Score: 0 Imaging - Results Cat Scan: Report Reviewed Ultrasound: Report Reviewed Assessment/Plan cc episode of fall after tangled in bed sheet before coming to hospital HPI 81 Year old female history of bullous pemphigoid and presented with two falls. first one was on july 02, when she tripped over due to crack. Second one just before she came to hospital for right knee injury and left elbow injury. Antonio is waiting to get operated. She denies any dizziness or balance difficulty , weakness or loss of consiousness . Past Medical HIstory as above Home Medication Bisacodyl Suppository [Dulcolax Suppository -] 10 mg RC PRN PRN 09/10/16 Dexamethasone [Decadron -] 12 mg PO DAILY 09/10/16 Dorzolamide HCl [Trusopt 2%] 1 drop TID 09/10/16 Furosemide [Lasix] 20 mg PO DAILY 09/10/16 Moxifloxacin HCl [Vigamox 0.5% Eye Drops -] 3 ml OD DAILY 09/10/16 Mycophenolate Mofetil [Cellcept] 500 mg PO 09/10/16 Prednisolone 1% Ophthalmic [Pred Forte 1% -] 5 ml OP DAILY 09/10/16 Timolol 0.5% [Timoptic 0.5%] 1 drop OD DAILY 09/10/16 Tramadol HCl 50 mg PO BID PRN 09/10/16 Neurological Examination Alert cooperative and follow command, oriented x 3 no face asymmetry moving hayden xtremity, left elbow injury and right knee, so limited activity of LUE AND RLE sensation and motor examination is normal CT head and carotid ultrasound is normal Assessment two episode of fall, ( one occasion she tripped due to crack and other time she was taqngled in bed sheet) there is no evidence of stroke or syncope or seizure, ct head and carotid ultrasound is unremarkable. Plan-- no furhter recommendation from neurological point of view - would see her as needed basis - feel free to call me if you have any question Dandy Wong MD
--- NOTE | 2016-09-12 15:17 | PN ---
Progress Note, Physician Chief Complaint: FALL, hypokalemia and hyponatremia History of Present Illness: The patient is a 81F with a PMH of MVP and bullous pemphigoid who originally presented to the ED after sustaining 2 falls. 1 week ago the patient tripped over a sidewalk which she normally walks on without problem and sustained injury to her R knee. She saw her PCP who prescribed tramadol and dexamethasone to help with swelling. She is already on prednisone for bullous pemphigoid. 2 days ago, in the morning she rolled out of bed, got entangled in the bed sheet and tripped again hitting her left side of the head and left elbow. She feels a bit better today, seen by ortho. - Current Medication List Current Medications: Active Medications Acetaminophen (Tylenol -) 650 mg PO Q4H PRN PRN Reason: FEVER OR PAIN Bisacodyl (Dulcolax Suppository -) 10 mg RC PRN PRN PRN Reason: no bowel movement Last Admin: 09/10/16 22:58 Dose: 10 mg Ciprofloxacin (Ciloxan 0.3% Eye Drops -) 2 drop OS Q4HWA [facility] Last Admin: 09/12/16 10:02 Dose: 2 drop Sodium Chloride (Normal Saline -) 1,000 mls @ 75 mls/hr IV ASDIR [facility] Last Admin: 09/11/16 22:29 Dose: 75 mls/hr Moxifloxacin HCl (Vigamox 0.5% Eye Drops -) 1 drop OD DAILY [facility] Last Admin: 09/12/16 10:04 Dose: 1 drop Prednisone (Deltasone -) 5 mg PO TID [facility] Last Admin: 09/12/16 06:32 Dose: 5 mg Timolol Maleate (Timoptic 0.5%) 1 drop OD TID [facility] Last Admin: 09/12/16 06:33 Dose: 1 drop Tramadol HCl (Ultram -) 50 mg PO BID PRN PRN Reason: PAIN Last Admin: 09/10/16 22:58 Dose: 50 mg - Objective Vital Signs: Vital Signs Temperature 97.8 F 09/12/16 10:00 Pulse Rate 67 09/12/16 10:00 Respiratory Rate 20 09/12/16 10:00 Blood Pressure 99/60 09/12/16 10:00 O2 Sat by Pulse Oximetry (%) 97 09/12/16 09:00 Constitutional: Yes: Well Nourished, No Distress, Calm Eyes: Yes: Other (left eye purulent discharge) Cardiovascular: Yes: Regular Rate and Rhythm Respiratory: Yes: Regular Gastrointestinal: Yes: Normal Bowel Sounds Musculoskeletal: Yes: Muscle Pain (right knee) Extremities: Yes: WNL Edema: No Peripheral Pulses WNL: Yes Neurological: Yes: Alert, Oriented Psychiatric: Yes: Alert, Oriented Labs: CBC, BMP 09/12/16 09:20 09/12/16 09:20 Problem List - Problems (1) Fracture Assessment/Plan: -right comminuted fracture of patella with intra-articular involvement -left avulsion fracture of ulnar olecranon with significant surrounding soft tissue edema -seen by orthopedist -follow up out patient in 3 weeks Code(s): T14.8 - OTHER INJURY OF UNSPECIFIED BODY REGION (2) Hypokalemia Assessment/Plan: -normalized -seen by renal -repeat labs in AM Code(s): E87.6 - HYPOKALEMIA (3) Hyponatremia Assessment/Plan: improving, continue to monitor Code(s): E87.1 - HYPO-OSMOLALITY AND HYPONATREMIA (4) Protein calorie malnutrition Assessment/Plan: -to be seen by RD -encourage po intake Code(s): E46 - UNSPECIFIED PROTEIN-CALORIE MALNUTRITION (5) Valvular heart disease Assessment/Plan: seen by cardiology echo ordered Code(s): I38 - ENDOCARDITIS, VALVE UNSPECIFIED (6) Leukocytosis Assessment/Plan: leukemoid reaction likely secondary to steroids UC negative Code(s): D72.829 - ELEVATED WHITE BLOOD CELL COUNT, UNSPECIFIED Assessment/Plan -IV fluids -monitor labs -Nephrology and cardiology consult appreciated -orthopedic consult -follow up outpatient in 3 weeks for possible surgical intervention for left elbow. -Nutrition consult -DNR -safety precautions -cipro ophthalmic -immobilizer when out of bed, remove while in bed -d/c if stable and cleared by cardiology and nephrology.
--- NOTE | 2016-09-12 18:53 | PN ---
Progress Note (short form) - Note Progress Note: cva s/p electrolyte disorders fall- l elbow and r patellar fx seen at bedside, eating dinner with seeming good appetite Current Medications Acetaminophen (Tylenol -) 650 mg PO Q4H PRN PRN Reason: FEVER OR PAIN Bisacodyl (Dulcolax Suppository -) 10 mg RC PRN PRN PRN Reason: no bowel movement Last Admin: 09/10/16 22:58 Dose: 10 mg Ciprofloxacin (Ciloxan 0.3% Eye Drops -) 2 drop OS Q4HWA [facility] Last Admin: 09/12/16 17:54 Dose: Not Given Sodium Chloride (Normal Saline -) 1,000 mls @ 75 mls/hr IV ASDIR [facility] Last Admin: 09/11/16 22:29 Dose: 75 mls/hr Moxifloxacin HCl (Vigamox 0.5% Eye Drops -) 1 drop OD DAILY [facility] Last Admin: 09/12/16 10:04 Dose: 1 drop Prednisone (Deltasone -) 5 mg PO TID [facility] Last Admin: 09/12/16 15:22 Dose: 5 mg Timolol Maleate (Timoptic 0.5%) 1 drop OD TID [facility] Last Admin: 09/12/16 15:19 Dose: 1 drop Tramadol HCl (Ultram -) 50 mg PO BID PRN PRN Reason: PAIN Last Admin: 09/10/16 22:58 Dose: 50 mg Last Vital Signs Temp Pulse Resp BP Pulse Ox 97.6 F 58 L 18 102/50 97 09/12/16 18:33 09/12/16 18:33 09/12/16 18:33 09/12/16 18:33 09/12/16 09:00 lungs clear heart reg abd soft ext no edema CBC, BMP 09/12/16 09:20 09/12/16 09:20 IMP- Hyponatremia improving with IVF NS HypoK resolving Underlying malnutrition Plan- continue same IVF follow up labs in am Problem List - Problems (1) Fracture Code(s): T14.8 - OTHER INJURY OF UNSPECIFIED BODY REGION (2) Hypokalemia Code(s): E87.6 - HYPOKALEMIA (3) Hyponatremia Code(s): E87.1 - HYPO-OSMOLALITY AND HYPONATREMIA (4) Valvular heart disease Code(s): I38 - ENDOCARDITIS, VALVE UNSPECIFIED (5) Protein calorie malnutrition Code(s): E46 - UNSPECIFIED PROTEIN-CALORIE MALNUTRITION
[2016-09-12] MEDS: SODIUM CHLORIDE 1,000 ML IV SCH (21:21)
[2016-09-13] MEDS: predniSONE 5 MG TABLET (UD) PO SCH ×3 (05:54→21:18)
[2016-09-13] MEDS: CIPROFLOXACIN HCL 0.3% OPHTH 2.5ML BOTTLE OS SCH ×5 (05:54→21:18)
[2016-09-13] MEDS: TIMOLOL 0.5% OPHTHALMIC SOL 5 ML BOTTLE OD SCH ×2 (05:54→14:14)
--- NOTE | 2016-09-13 08:16 | PN ---
Progress Note, Physician - Current Medication List Current Medications: Active Medications Acetaminophen (Tylenol -) 650 mg PO Q4H PRN PRN Reason: FEVER OR PAIN Bisacodyl (Dulcolax Suppository -) 10 mg RC PRN PRN PRN Reason: no bowel movement Last Admin: 09/10/16 22:58 Dose: 10 mg Ciprofloxacin (Ciloxan 0.3% Eye Drops -) 2 drop OS Q4HWA [facility] Last Admin: 09/13/16 05:54 Dose: 2 drop Sodium Chloride (Normal Saline -) 1,000 mls @ 75 mls/hr IV ASDIR [facility] Last Admin: 09/12/16 21:21 Dose: 75 mls/hr Moxifloxacin HCl (Vigamox 0.5% Eye Drops -) 1 drop OD DAILY [facility] Last Admin: 09/12/16 10:04 Dose: 1 drop Prednisone (Deltasone -) 5 mg PO TID [facility] Last Admin: 09/13/16 05:54 Dose: 5 mg Timolol Maleate (Timoptic 0.5%) 1 drop OD TID [facility] Last Admin: 09/13/16 05:54 Dose: 1 drop Tramadol HCl (Ultram -) 50 mg PO BID PRN PRN Reason: PAIN Last Admin: 09/10/16 22:58 Dose: 50 mg - Objective Vital Signs: Vital Signs Temperature 97.7 F 09/13/16 06:00 Pulse Rate 57 L 09/13/16 06:00 Respiratory Rate 18 09/13/16 06:00 Blood Pressure 97/56 09/13/16 06:00 O2 Sat by Pulse Oximetry (%) 97 09/12/16 21:00 Cardiovascular: Yes: Murmur, S1, S2 Respiratory: Yes: Regular, CTA Bilaterally Gastrointestinal: Yes: Normal Bowel Sounds, Soft Musculoskeletal: Yes: Other (splint left arm less swelling of knee) Labs: CBC, BMP 09/12/16 09:20 09/12/16 09:20 Problem List - Problems (1) Bullous pemphigoid Assessment/Plan: pt has been off steroids Code(s): L12.0 - BULLOUS PEMPHIGOID (2) Severe protein-calorie malnutrition Assessment/Plan: -to be seen by RD -encourage po intake Code(s): E43 - UNSPECIFIED SEVERE PROTEIN-CALORIE MALNUTRITION Assessment/Plan - Problems (1) Fracture Assessment/Plan: -right comminuted fracture of patella with intra-articular involvement -left avulsion fracture of ulnar olecranon with significant surrounding soft tissue edema -seen by orthopedist--pt eval -follow up out patient in 3 weeks Code(s): T14.8 - OTHER INJURY OF UNSPECIFIED BODY REGION (2) Hypokalemia Assessment/Plan: -normalized -seen by renal -repeat labs Code(s): E87.6 - HYPOKALEMIA (3) Hyponatremia Assessment/Plan: improving, continue to monitor Code(s): E87.1 - HYPO-OSMOLALITY AND HYPONATREMIA (4) Protein calorie malnutrition Assessment/Plan: -to be seen by RD -encourage po intake Code(s): E46 - UNSPECIFIED PROTEIN-CALORIE MALNUTRITION (5) Valvular heart disease Assessment/Plan: seen by cardiology echo ordered Code(s): I38 - ENDOCARDITIS, VALVE UNSPECIFIED (6) Leukocytosis Assessment/Plan: leukemoid reaction likely secondary to steroids UC negative Code(s): D72.829 - ELEVATED WHITE BLOOD CELL COUNT, UNSPECIFIED Assessment/Plan -IV fluids -monitor labs -Nephrology and cardiology consult appreciated -orthopedic consult--pt eval -follow up outpatient in 3 weeks for possible surgical intervention for left elbow. -Nutrition consult -DNR -safety precautions -cipro ophthalmic -immobilizer when out of bed, remove while in bed -d/c if stable and cleared by cardiology and nephrology.
[2016-09-13 08:43] LABS: MCH 29.8 pg (25.7-33.7); MCHC 33.6 g/dl (32.0-36.0); MEAN CELL VOLUME 88.6 fl (80-96); MEAN PLT VOLUME 7.5 fl (7.5-11.1); PLATELET COUNT 334 K/MM3 (134-434); RDW 13.3 % (11.6-15.6); WHITE BLOOD COUNT 22.5 K/mm3 (4.0-10.0)
[2016-09-13 09:14] LABS: ALBUMIN 2.4 g/dl (3.4-5.0); ANION GAP 7 (8-16); CALCIUM 7.6 mg/dL (8.5-10.1); CO2 27 mmol/L (21-32); GLUCOSE,RANDOM 101 mg/dL (74-106); SGOT/AST 17 U/L (15-37)
[2016-09-13 09:27] LABS: ALK PHOS 50 U/L (45-117); BILIRUBIN,TOTAL 1.1 mg/dL (0.2-1.0); CREATININE 0.2 mg/dL (0.55-1.02); SGPT/ALT 23 U/L (12-78); TOT PROT 4.8 g/dl (6.4-8.2)
[2016-09-13] MEDS: traMADol HCL 50 MG TABLET PO PRN (09:36)
[2016-09-13] MEDS: MOXIFLOXACIN HCL 0.5% OPHTHALMIC 3 ML BOTTLE OD SCH (09:39)
--- NOTE | 2016-09-13 09:48 | PN ---
Physical Exam: Nephrology follow up SUBJECTIVE: Patient seen and examined. Sitting comfortably in bed. Denies dizziness, lightheadedness. OBJECTIVE: Vital Signs Period Temp Pulse Resp BP Sys/[place] Pulse Ox Last 24 Hr 97.6 F-98.8 F 57-67 18-20 97-109/48-60 97 GENERAL: The patient is awake, alert, and fully oriented, NECK: Trachea midline, full range of motion, supple. LUNGS: Breath sounds equal, clear to auscultation bilaterally, no wheezes, no crackles, no accessory muscle use. HEART: Regular S1, S2 ABDOMEN: Soft, nontender, nondistended, normoactive bowel sounds, no guarding, no rebound, EXTREMITIES: warm, well-perfused, no edema. SKIN: Warm, dry, Laboratory Results - last 24 hr 09/12/16 09/12/16 09/13/16 09:20 09:20 08:20 WBC 21.6 H 22.5 H RBC 4.25 4.14 Hgb 12.7 12.3 Hct 38.3 36.7 MCV 90.1 88.6 MCH 29.9 29.8 MCHC 33.2 33.6 RDW 13.3 13.3 Plt Count 270 334 D MPV 8.0 7.5 Neutrophils % 89.0 H Y Lymphocytes % 4.0 L D Y Monocytes % 6.0 Eosinophils % 1.0 D Platelet Estimate Adequate Platelet Comment No clumping noted Sodium 128 L Potassium 3.9 Chloride 92 L Carbon Dioxide 29 Anion Gap 7 L BUN 9 D Creatinine 0.4 L Creat Clearance w eGFR > 60 Random Glucose 135 H D Calcium 7.9 L Total Bilirubin 0.8 AST 19 ALT 25 Alkaline Phosphatase 52 Total Protein 5.0 L Albumin 2.6 L Urine Osmolality Cancelled 09/13/16 08:20 WBC RBC Hgb Hct MCV MCH MCHC RDW Plt Count MPV Neutrophils % Lymphocytes % Monocytes % Eosinophils % Platelet Estimate Platelet Comment Sodium 130 L Potassium 4.1 Chloride 96 L Carbon Dioxide 27 Anion Gap 7 L BUN 10 Creatinine 0.2 L D Creat Clearance w eGFR > 60 Random Glucose 101 D Calcium 7.6 L Total Bilirubin 1.1 H D AST 17 ALT 23 Alkaline Phosphatase 50 Total Protein 4.8 L Albumin 2.4 L Urine Osmolality Active Medications Generic Name Dose Route Start Last Admin Trade Name Freq PRN Reason Stop Dose Admin Acetaminophen 650 mg 09/10/16 19:59 Tylenol - PO Q4H PRN FEVER OR PAIN Bisacodyl 10 mg 09/10/16 19:51 09/10/16 22:58 Dulcolax Suppository - RC 10 mg PRN PRN Administration no bowel movement Ciprofloxacin 2 drop 09/11/16 18:00 09/13/16 05:54 Ciloxan 0.3% Eye Drops - OS 2 drop Q4HWA FREDI Administration Sodium Chloride 1,000 mls @ 75 mls/hr 09/10/16 20:00 09/12/16 21:21 Normal Saline - IV 75 mls/hr ASDIR FREDI Administration Moxifloxacin HCl 1 drop 09/11/16 10:00 09/12/16 10:04 Vigamox 0.5% Eye Drops - OD 1 drop DAILY FREDI Administration Prednisone 5 mg 09/13/16 10:00 Deltasone - PO BID FREDI Timolol Maleate 1 drop 09/10/16 22:00 09/13/16 05:54 Timoptic 0.5% OD 1 drop TID FREDI Administration Tramadol HCl 50 mg 09/10/16 19:51 09/10/16 22:58 Ultram - PO 50 mg BID PRN Administration PAIN ASSESSMENT/PLAN: (1) Fracture (2) Hypokalemia (3) Hyponatremia (4) Valvular heart disease (5) Protein calorie malnutrition (6) Bullous pemphigoid. Plan Sr potassium normalized Sr sodium improving. Continue Iv fluid. Monitor electrolytes. Monitor vitals. will get urine osmolality, serum osmolality and urine electrolytes Cardiology and ortho on case. Visit type - Emergency Visit Emergency Visit: Yes ED Registration Date: 09/10/16 Care time: The patient presented to the Emergency Department on the above date and was hospitalized for further evaluation of their emergent condition. - New Patient This patient is new to me today: Yes Date on this admission: 09/13/16 - Critical Care Critical Care patient: No
[2016-09-13 10:35] LABS: METAMYELOCYTE 2 % (0-2); PLATELET ESTIMATE ADEQUATE (NORMAL)
--- NOTE | 2016-09-13 11:26 | PN ---
Progress Note, Physician History of Present Illness: The patient is a 81F with a PMH of MVP and bullous pemphigoid who presents to the ED after sustaining 2 falls. 1 week ago the patient tripped over a sidewalk which she normally walks on without problem and sustained injury to her R knee. She saw her PCP who prescribed tramadol and prednisone to help with swelling. This morning she rolled out of bed onto her L elbow and sustained a laceration to her L eyebrow, 2 cm in length. She states that she's had recent loss of balance. No LOC, blood thinners, no lightheadedness with today's fall. Allergies: NKDA Soc: Lives by herself, has an aide but family states she is taking less care of herself. - Current Medication List Current Medications: Active Medications Acetaminophen (Tylenol -) 650 mg PO Q4H PRN PRN Reason: FEVER OR PAIN Bisacodyl (Dulcolax Suppository -) 10 mg RC PRN PRN PRN Reason: no bowel movement Last Admin: 09/10/16 22:58 Dose: 10 mg Ciprofloxacin (Ciloxan 0.3% Eye Drops -) 2 drop OS Q4HWA [facility] Last Admin: 09/13/16 09:37 Dose: 2 drop Sodium Chloride (Normal Saline -) 1,000 mls @ 75 mls/hr IV ASDIR [facility] Last Admin: 09/12/16 21:21 Dose: 75 mls/hr Moxifloxacin HCl (Vigamox 0.5% Eye Drops -) 1 drop OD DAILY [facility] Last Admin: 09/13/16 09:39 Dose: 1 drop Prednisone (Deltasone -) 5 mg PO BID [facility] Last Admin: 09/13/16 09:50 Dose: Not Given Timolol Maleate (Timoptic 0.5%) 1 drop OD TID [facility] Last Admin: 09/13/16 05:54 Dose: 1 drop Tramadol HCl (Ultram -) 50 mg PO BID PRN PRN Reason: PAIN Last Admin: 09/13/16 09:36 Dose: 50 mg - Objective Vital Signs: Vital Signs Temperature 98.2 F 09/13/16 09:48 Pulse Rate 64 09/13/16 09:48 Respiratory Rate 18 09/13/16 09:48 Blood Pressure 89/52 09/13/16 09:48 O2 Sat by Pulse Oximetry (%) 97 09/12/16 21:00 Eyes: Yes: WNL, Conjunctiva Clear, EOM Intact HENT: Yes: WNL, Atraumatic, Normocephalic Neck: Yes: WNL, Supple, Trachea Midline Cardiovascular: Yes: WNL, Regular Rate and Rhythm Respiratory: Yes: WNL, Regular, CTA Bilaterally Gastrointestinal: Yes: WNL, Normal Bowel Sounds Genitourinary: Yes: WNL Musculoskeletal: Yes: WNL Extremities: Yes: WNL Edema: No Integumentary: Yes: WNL Neurological: Yes: WNL, Alert, Oriented ...Motor Strength: WNL Psychiatric: Yes: WNL Labs: CBC, BMP 09/13/16 08:20 09/13/16 08:20 Problem List - Problems (1) Abnormal CXR Code(s): R93.8 - ABNORMAL FINDINGS ON DIAGNOSTIC IMAGING OF BODY STRUCTURES (2) Bullous pemphigoid Code(s): L12.0 - BULLOUS PEMPHIGOID (3) Edema Code(s): R60.9 - EDEMA, UNSPECIFIED (4) Fracture Code(s): T14.8 - OTHER INJURY OF UNSPECIFIED BODY REGION (5) Heart murmur Code(s): R01.1 - CARDIAC MURMUR, UNSPECIFIED (6) Hypokalemia Code(s): E87.6 - HYPOKALEMIA (7) Hyponatremia Code(s): E87.1 - HYPO-OSMOLALITY AND HYPONATREMIA (8) Valvular heart disease Code(s): I38 - ENDOCARDITIS, VALVE UNSPECIFIED Assessment/Plan imp; MVP severe MR ? MV veg. pulm HTN s/p falls hyponatremia leukocytosis chf left olecranon fracture- will need surgical repair plan; cxr IV lasix free water restriction ID/renal w/u repeat the echo cont telemetry
--- NOTE | 2016-09-13 12:14 | PN ---
Teaching Attending Note Name of Resident: Bayron Kwon (Nephrology) ATTENDING PHYSICIAN STATEMENT I saw and evaluated the patient. I reviewed the resident's note and discussed the case with the resident. I agree with the resident's findings and plan as documented. Renal Follow Up Pt seen and examined at bedside. She is awake and alert. She denies headache or change in vision. Current Medications Generic Name Dose Route Start Last Admin Trade Name Freq PRN Reason Stop Dose Admin Acetaminophen 650 mg 09/10/16 19:59 Tylenol - PO Q4H PRN FEVER OR PAIN Bisacodyl 10 mg 09/10/16 19:51 09/10/16 22:58 Dulcolax Suppository - RC 10 mg PRN PRN Administration no bowel movement Ciprofloxacin 2 drop 09/11/16 18:00 09/13/16 09:37 Ciloxan 0.3% Eye Drops - OS 2 drop Q4HWA FREDI Administration Sodium Chloride 1,000 mls @ 75 mls/hr 09/10/16 20:00 09/12/16 21:21 Normal Saline - IV 75 mls/hr ASDIR FREDI Administration Moxifloxacin HCl 1 drop 09/11/16 10:00 09/13/16 09:39 Vigamox 0.5% Eye Drops - OD 1 drop DAILY FREDI Administration Prednisone 5 mg 09/13/16 10:00 09/13/16 09:50 Deltasone - PO Not Given BID FREDI Timolol Maleate 1 drop 09/10/16 22:00 09/13/16 05:54 Timoptic 0.5% OD 1 drop TID FREDI Administration Tramadol HCl 50 mg 09/10/16 19:51 09/13/16 09:36 Ultram - PO 50 mg BID PRN Administration PAIN Laboratory Tests 09/12/16 09/13/16 09:20 08:20 Sodium 128 L 130 L Potassium 4.1 Last Vital Signs Temp Pulse Resp BP Pulse Ox 98.2 F 64 18 89/52 97 09/13/16 09:48 09/13/16 09:48 09/13/16 09:48 09/13/16 09:48 09/12/16 21:00 cardio s1s2 pulm clear GI soft ext neg edema, left arm in sling neuro awake and alert Impression 1. hyponatremia 2. hypokalemia 3. valvular heard disease 4. arm fracture 5. s/p fall 6. malnutrition 7. Bullous pemphigoid. Plan - sodium is improving with hydration - check osms, tsh and cortisol - hyponatremia is a risk for fall - repeat labs in am - do not restrict salt in diet Dr Antonio
--- NOTE | 2016-09-13 13:41 | PN ---
Progress Note (short form) - Note Progress Note: ID Consult dictated Leukocytosis- likely steroid-induced S/P fall with R patella and L olecrannon fractures Observe off antibiotics
[2016-09-13] MEDS: SODIUM CHLORIDE 1,000 ML IV SCH ×2 (18:13→21:19)
--- NOTE | 2016-09-13 20:37 | CONS ---
DATE OF CONSULTATION: DATE OF DICTATION: 09/13/2016 INFECTIOUS DISEASE CONSULTATION HISTORY OF PRESENT ILLNESS: The patient is a 81-year-old female who is evaluated for leukocytosis. She was admitted to the hospital on September 10, 2016, after falling at home several times sustaining trauma to her left elbow and right knee. She is found to have a comminuted fracture of the right patella as well as a left avulsion fracture of the ulnar olecranon. She was seen in consultation by orthopedics. She is to be managed nonoperatively for the patella fracture but ultimately requires surgery on the left olecranon. Her course was complicated by elevated white blood cell count, hyponatremia, and hypokalemia. The patient was recently treated with a course of prednisone and tramadol for swelling, which occurred after her falls. She has a history of bullous pemphigoid for which she takes CellCept. She denies taking chronic steroids. She has been afebrile. She denies chest pain, shortness of breath, cough, or sputum production. No dysuria or hematuria. No complaints of vomiting or diarrhea. PAST MEDICAL HISTORY: Positive for bullous pemphigoid, pulmonary hypertension, CHF, mitral valve prolapse. ALLERGIES: No known allergies. MEDICATION: Decadron, Lasix, prednisone, tramadol. SOCIAL HISTORY: She lives at home. She is a nonsmoker, nondrinker . SYSTEMS REVIEW: Neurologic: No loss of consciousness, seizure activity, or focal weakness. Cardiac: Negative chest pain or palpitations. Respiratory: Negative cough or sputum production. Gastrointestinal: Negative vomiting or diarrhea. Genitourinary: Negative for urinary tract infection. LABORATORY DATA: White count 22.5, with 80 neutrophils, 6 lymphocytes, 2 monocytes, 1 eosinophil, 7 bands. BUN 10, creatinine 0.2, urinalysis negative. Urine culture negative. Chest x-ray negative. PHYSICAL EXAMINATION: General: She is awake and alert. She is in moderate distress secondary to right knee and left elbow pain. Vital signs: Temperature 98.2, blood pressure 89/52, pulse 64 regular, respirations 18 per minute. HEENT: Sclerae anicteric. Cardiovascular: Heart sounds S1, S2. Respiratory: Lungs clear. Abdomen: Soft. No tenderness elicited. No mass, rebound, or rigidity. Extremities: Right patella with swelling and ecchymosis, no erythema or warmth. The left upper extremity is wrapped. IMPRESSION: 1. Leukocytosis likely steroid induced. 2. Status post fall with right patella and left olecranon fractures. 3. Status post hyponatremia. 4. Status post hypokalemia. Suspect leukocytosis steroid induced and no clear infectious etiology for it. Elevated white blood cell count. Would observe off antibiotic therapy. Patient is now off steroids, would obtain cultures off antibiotics for persistent leukocytosis off steroids. LIO ARREDONDO M.D. [id number]
[2016-09-13] MEDS ORDERED: PT OWN MED DRAWER 7, Y5N ONE ×2 (21:17→21:48)
[2016-09-13] MEDS: TIMOLOL 0.5% OPHTHALMIC SOL 5 ML BOTTLE OS SCH (21:20)
[2016-09-14] MEDS: traMADol HCL 50 MG TABLET PO PRN ×2 (03:10→21:02)
[2016-09-14] MEDS ORDERED: PT OWN MED DRAWER 7, Y5N ONE ×7 (05:54→23:03)
[2016-09-14] MEDS: TIMOLOL 0.5% OPHTHALMIC SOL 5 ML BOTTLE OS SCH ×3 (06:06→21:03)
[2016-09-14] MEDS: CIPROFLOXACIN HCL 0.3% OPHTH 2.5ML BOTTLE OS SCH ×4 (06:06→21:10)
[2016-09-14] MEDS: SODIUM CHLORIDE 1,000 ML IV SCH (06:07)
[2016-09-14 07:57] LABS: ANION GAP 6 (8-16); CALCIUM 7.5 mg/dL (8.5-10.1); CO2 24 mmol/L (21-32); CREATININE < 0.2 mg/dL (0.55-1.02); GLUCOSE,RANDOM 95 mg/dL (74-106); MAGNESIUM 2.7 mg/dL (1.8-2.4)
[2016-09-14] MEDS: predniSONE 5 MG TABLET (UD) PO SCH ×2 (10:26→21:01)
[2016-09-14] MEDS: MOXIFLOXACIN HCL 0.5% OPHTHALMIC 3 ML BOTTLE OD SCH (10:27)
--- NOTE | 2016-09-14 11:59 | PN ---
Progress Note, Physician Chief Complaint: FALL, hypokalemia and hyponatremia History of Present Illness: The patient is a 81F with a PMH of MVP and bullous pemphigoid who originally presented to the ED after sustaining 2 falls. 1 week ago the patient tripped over a sidewalk which she normally walks on without problem and sustained injury to her R knee. She saw her PCP who prescribed tramadol and dexamethasone to help with swelling. She is already on prednisone for bullous pemphigoid. 2 days ago, in the morning she rolled out of bed, got entangled in the bed sheet and tripped again hitting her left side of the head and left elbow. She feels a better today., NAD, in bed. - Current Medication List Current Medications: Active Medications Acetaminophen (Tylenol -) 650 mg PO Q4H PRN PRN Reason: FEVER OR PAIN Bisacodyl (Dulcolax Suppository -) 10 mg RC PRN PRN PRN Reason: no bowel movement Last Admin: 09/10/16 22:58 Dose: 10 mg Ciprofloxacin (Ciloxan 0.3% Eye Drops -) 2 drop OS Q4HWA [facility] Last Admin: 09/14/16 10:26 Dose: 2 drop Sodium Chloride (Normal Saline -) 1,000 mls @ 75 mls/hr IV ASDIR [facility] Last Admin: 09/14/16 06:07 Dose: 75 mls/hr Moxifloxacin HCl (Vigamox 0.5% Eye Drops -) 1 drop OD DAILY [facility] Last Admin: 09/14/16 10:27 Dose: 1 drop Prednisone (Deltasone -) 5 mg PO BID [facility] Last Admin: 09/14/16 10:26 Dose: 5 mg Timolol Maleate (Timoptic 0.5%) 1 drop OS TID [facility] Last Admin: 09/14/16 06:06 Dose: 1 drop Tramadol HCl (Ultram -) 50 mg PO BID PRN PRN Reason: PAIN Last Admin: 09/14/16 03:10 Dose: 50 mg - Objective Vital Signs: Vital Signs Temperature 97.8 F 09/14/16 10:31 Pulse Rate 63 09/14/16 10:31 Respiratory Rate 166 H 09/14/16 10:31 Blood Pressure 99/56 09/14/16 10:31 O2 Sat by Pulse Oximetry (%) 97 09/13/16 21:00 Constitutional: Yes: Well Nourished, No Distress, Calm Cardiovascular: Yes: Regular Rate and Rhythm Respiratory: Yes: Regular Gastrointestinal: Yes: Normal Bowel Sounds Edema: No Peripheral Pulses WNL: Yes Neurological: Yes: Alert, Oriented Psychiatric: Yes: Alert, Oriented Labs: CBC, BMP 09/13/16 08:20 09/14/16 06:40 Problem List - Problems (1) Fracture Assessment/Plan: -right comminuted fracture of patella with intra-articular involvement -left avulsion fracture of ulnar olecranon with significant surrounding soft tissue edema -seen by orthopedist -follow up out patient in 3 weeks Code(s): T14.8 - OTHER INJURY OF UNSPECIFIED BODY REGION (2) Hypokalemia Assessment/Plan: -normalized -seen by renal -repeat labs in AM Code(s): E87.6 - HYPOKALEMIA (3) Hyponatremia Assessment/Plan: improving, continue to monitor labs in AM Code(s): E87.1 - HYPO-OSMOLALITY AND HYPONATREMIA (4) Protein calorie malnutrition Assessment/Plan: -to be seen by RD -encourage po intake Code(s): E46 - UNSPECIFIED PROTEIN-CALORIE MALNUTRITION (5) Valvular heart disease Assessment/Plan: seen by cardiology echo done, EF 74.5%, Code(s): I38 - ENDOCARDITIS, VALVE UNSPECIFIED (6) Leukocytosis Assessment/Plan: leukemoid reaction likely secondary to steroids UC negative Code(s): D72.829 - ELEVATED WHITE BLOOD CELL COUNT, UNSPECIFIED Assessment/Plan -IV fluids -monitor labs -Nephrology and cardiology consult appreciated -orthopedic consult -follow up outpatient in 3 weeks for possible surgical intervention for left elbow. -Nutrition consult -DNR -safety precautions -cipro ophthalmic -immobilizer when out of bed, remove while in bed -seen by ID for leukocytosis -AWAITING TO BE SEEN BY PHYSICAL THERAPY. -d/c if stable and cleared by cardiology and nephrology.
--- NOTE | 2016-09-14 13:23 | CONS ---
PHYSICAL MEDICINE REHABILITATION CONSULTATION DATE OF CONSULTATION: 09/14/2016 REFERRING PHYSICIAN: Mario Ng MD DATE OF ADMISSION: 09/10/2016 HISTORY OF PRESENT ILLNESS: Patient is a 81-year-old woman with past medical history of bullous pemphigoid on steroids, as well as mitral valve prolapse, who presented to the emergency room on September 10, 2016, following multiple falls. Patient fell about a week prior to admission after she tripped while walking on a sidewalk. She sustained an injury to her right knee and was prescribed medication that helped with the swelling. Patient then subsequently fell on the day prior to admission on her left elbow and also banged her left forehead. Patient was brought to [facility] on September 10. Ultrasound of the right lower extremity was negative for deep venous thrombosis. She underwent carotid Doppler studies which apparently showed no hemodynamically significant stenosis, but x-ray of the right knee demonstrated comminuted fracture of the patella with minimal displacement, and an x-ray of her left elbow showed a fracture involving the olecranon process. CT of the head showed no evidence of acute intracranial pathology. Patient was placed in a splint to the left upper extremity, and a knee immobilizer was ordered for her right lower extremity. She underwent orthopedic evaluation, and she will need surgery on her left elbow but can ambulate weightbearing as tolerated to the right lower extremity with knee immobilizer. The knee immobilizer can be taken off when in bed. Other tests included a chest x-ray on September 12, which showed no acute pathology. An enlarged heart and abdominal distention were noted. Blood work showed leukocytosis including 19.5 thousand on admission and 22.5 on September 13. Otherwise, her CBC was unremarkable. Last hemoglobin was 12.3, and platelet count 334. Patient also had some hyponatremia with a sodium of 123 on admission. Potassium was low at 2.3. This has improved. Her last sodium done today was 133. Potassium normalized to 4.7. Albumin is low; last taken on September 13, at 2.4. Magnesium is high at 2.7, with a low calcium, 7.5, which corrects for low albumin. Troponin was less than 0.02. Patient, also of note, was seen by Infectious Disease for leukocytosis, and this was felt due to the steroids for bullous pemphigoid. REVIEW OF PAST MEDICAL AND SURGICAL HISTORY: As above. SOCIAL HISTORY: She lives in a house or an apartment, but either way, it has 4 steps to enter; premorbidly independent. Current function to be determined. Patient really has not gotten out of bed. She states that the first knee immobilizer she got was too large. REVIEW OF SYSTEMS: Despite the head trauma, no headache. No lightheadedness or dizziness. She does have no vision out of her right eye, which is chronic, but no change in vision out of the left eye, such as blurry or double vision. No nausea, vomiting, difficulty swallowing, difficulty chewing. No chest pain, shortness of breath. No fever or chills. No bowel or bladder incontinence. Pain in the left elbow and right knee. No numbness or tingling. No other joint arthralgias at this time. No fever or chills. Skin rash was noted. PHYSICAL EXAMINATION: General: Patient is an elderly woman seen lying in bed. She is in no acute distress but upset regarding her condition. HEENT: She is normocephalic. She sustained trauma around the left orbit. She has some ptosis of the right eye and cannot see anything out of the right eye, but otherwise, extraocular muscles intact in the left eye, with intact vision at short distances, although her baseline is she needs glasses. No other facial weakness other than the right eye ptosis which is partial. Neck: Supple. Extremities: She has left upper extremity wrapped at about 90 degrees in a splint with an Darvin bandage. No pitting edema in the lower extremities or calf tenderness. Neuromuscular: She is awake, alert, and cooperative. Cranial nerves: Again, she has no vision out of the right eye, but otherwise, the left eye cranial nerve 2 is intact, and 3-12 are grossly intact except for possible lid ptosis on the right. She has good range in her left shoulder, as well as in the wrist and hand of the left upper extremity with normal sensation. The right upper extremity has good range of motion and strength. No advanced osteo/degenerative changes. In the lower extremity, the right knee was not ranged. Xiff-[id number] tenderness but good dorsiflexion and plantar flexion, and she has good strength and range in the left lower extremity, normal sensation. Unable to stand or ambulate her at this time. No knee immobilizer applied. OVERALL IMPRESSION: 1. Deficits in mobility and activities of daily living. 2. Status post multiple falls. 3. Right comminuted patellar fracture with minimal displacement. 4. Left olecranon fracture. 5. Hyponatremia, improving. 6. Status post hypokalemia. 7. Hypermagnesemia. 8. Hypoalbuminemia. 9. Bullous pemphigoid. 10. Leukocytosis, thought secondary to steroids. 11. Elevated risk for deep venous thrombosis due to immobility. 12. History of mitral valve prolapse. 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 PLAN/SUGGESTION: 1. Physical therapy once knee immobilizer available. Weightbearing as tolerated. Would apply left upper extremity sling. 2. Weightbearing as tolerated with right knee immobilizer. 3. Orthopedic followup as directed. 4. Consider DVT prophylaxis, subcutaneous heparin 5000 units q.12 hours. 5. Skin precautions. 6. Follow up chemistry and CBC per Medicine. 7. Monitor heel and sacrum for erythema or breakdown. 8. Monitor bowels for constipation and continue Dulcolax suppository. 9. Patient is on tramadol for pain. 10. Agree with disposition to short-term rehabilitation in a [facility] facility. Thank you for this referral. ALEXANDRA CEVALLOS M.D. [id number]
--- NOTE | 2016-09-14 13:56 | PN ---
Physical Exam: SUBJECTIVE: Patient seen and examined. Sitting comfortably in bed. Denies dizziness, lightheadedness. OBJECTIVE: Vital Signs Period Temp Pulse Resp BP Sys/Del Toro Pulse Ox Last 24 Hr 97.6 F-98.7 F 62-72 16-166 99-108/52-62 97 GENERAL: The patient is awake, alert, and fully oriented, NECK: Trachea midline, full range of motion, supple. LUNGS: Breath sounds equal, clear to auscultation bilaterally, no wheezes, no crackles, no accessory muscle use. HEART: Regular S1, S2 ABDOMEN: Soft, nontender, nondistended, normoactive bowel sounds, no guarding, no rebound, EXTREMITIES: warm, well-perfused, no edema. SKIN: Warm, dry, Laboratory Results - last 24 hr 09/13/16 09/13/16 09/13/16 12:25 12:25 12:25 Sodium Potassium Chloride Carbon Dioxide Anion Gap BUN Creatinine Random Glucose Calcium Magnesium Ur Random Sodium Cancelled 56 Ur Random Potassium Cancelled 14.1 Ur Random Chloride 31 09/14/16 06:40 Sodium 133 L Potassium 4.9 Chloride 103 Carbon Dioxide 24 Anion Gap 6 L BUN 8 Creatinine < 0.2 L Random Glucose 95 Calcium 7.5 L Magnesium 2.7 H Ur Random Sodium Ur Random Potassium Ur Random Chloride Active Medications Generic Name Dose Route Start Last Admin Trade Name Freq PRN Reason Stop Dose Admin Acetaminophen 650 mg 09/10/16 19:59 Tylenol - PO Q4H PRN FEVER OR PAIN Bisacodyl 10 mg 09/10/16 19:51 09/10/16 22:58 Dulcolax Suppository - RC 10 mg PRN PRN Administration no bowel movement Ciprofloxacin 2 drop 09/11/16 18:00 09/14/16 10:26 Ciloxan 0.3% Eye Drops - OS 2 drop Q4HWA FREDI Administration Sodium Chloride 1,000 mls @ 75 mls/hr 09/10/16 20:00 09/14/16 06:07 Normal Saline - IV 75 mls/hr ASDIR FREDI Administration Moxifloxacin HCl 1 drop 09/11/16 10:00 09/14/16 10:27 Vigamox 0.5% Eye Drops - OD 1 drop DAILY FREDI Administration Mycophenolate Mofetil 500 mg 09/15/16 10:00 Cellcept - PO MoWeFr@1000 FREDI Prednisone 5 mg 09/13/16 10:00 09/14/16 10:26 Deltasone - PO 5 mg BID FREDI Administration Timolol Maleate 1 drop 09/13/16 22:00 09/14/16 06:06 Timoptic 0.5% OS 1 drop TID FREDI Administration Tramadol HCl 50 mg 09/10/16 19:51 09/14/16 03:10 Ultram - PO 50 mg BID PRN Administration PAIN Intake & Output 09/11/16 09/12/16 09/13/16 09/14/16 23:59 23:59 23:59 23:59 Intake Total 600 1320 1864 1140 Output Total 200 300 Balance 400 1320 1564 1140 Weight 36.287 kg 40.143 kg ASSESSMENT/PLAN:(1) Fracture (2) Hypokalemia (3) Hyponatremia (4) Valvular heart disease (5) Protein calorie malnutrition (6) Bullous pemphigoid. Plan Sr potassium normalized Sr sodium improving. 133 stop iv fluid. started her on salt tablet 1gm bid. encourage PO intake, patient sister states that her oral intake is very little. Monitor electrolytes. Monitor vitals. Cardiology and ortho on case. Visit type - Emergency Visit Emergency Visit: Yes ED Registration Date: 09/10/16 Care time: The patient presented to the Emergency Department on the above date and was hospitalized for further evaluation of their emergent condition. - New Patient This patient is new to me today: No - Critical Care Critical Care patient: No
[2016-09-14] MEDS: BISACODYL 10 MG SUPP.RECT RC PRN (14:19)
--- NOTE | 2016-09-14 16:12 | PN ---
Teaching Attending Note Name of Resident: Bayron Kwon (Nephrology) ATTENDING PHYSICIAN STATEMENT I saw and evaluated the patient. I reviewed the resident's note and discussed the case with the resident. I agree with the resident's findings and plan as documented. Renal Follow Up Pt seen and examined at bedside. She has poor appetite. Current Medications Generic Name Dose Route Start Last Admin Trade Name Freq PRN Reason Stop Dose Admin Acetaminophen 650 mg 09/10/16 19:59 Tylenol - PO Q4H PRN FEVER OR PAIN Bisacodyl 10 mg 09/10/16 19:51 09/14/16 14:19 Dulcolax Suppository - RC 10 mg PRN PRN Administration no bowel movement Ciprofloxacin 2 drop 09/11/16 18:00 09/14/16 14:27 Ciloxan 0.3% Eye Drops - OS 2 drop Q4HWA FREDI Administration Moxifloxacin HCl 1 drop 09/11/16 10:00 09/14/16 10:27 Vigamox 0.5% Eye Drops - OD 1 drop DAILY FREDI Administration Mycophenolate Mofetil 500 mg 09/15/16 10:00 Cellcept - PO MoWeFr@1000 FREDI Prednisone 5 mg 09/13/16 10:00 09/14/16 10:26 Deltasone - PO 5 mg BID FREDI Administration Sodium Chloride 1 gm 09/14/16 22:00 Sodium Chloride Tablet - PO BID FREDI Timolol Maleate 1 drop 09/13/16 22:00 09/14/16 14:17 Timoptic 0.5% OS 1 drop TID FREDI Administration Tramadol HCl 50 mg 09/10/16 19:51 09/14/16 03:10 Ultram - PO 50 mg BID PRN Administration PAIN Last Vital Signs Temp Pulse Resp BP Pulse Ox 98.1 F 69 17 99/62 97 09/14/16 15:19 09/14/16 15:19 09/14/16 15:19 09/14/16 15:19 09/14/16 10:30 Laboratory Tests 09/11/16 09/13/16 09/14/16 00:30 12:25 06:40 Sodium 133 L TSH 1.11 Ur Random Sodium 56 cardio s1s2 pulm clear GI soft ext neg edema, left arm in sling neuro awake and alert Impression 1. hyponatremia 2. hypokalemia 3. valvular heard disease 4. arm fracture 5. s/p fall 6. malnutrition 7. Bullous pemphigoid. Plan - sodium is improving - pt does not want iv fluids - will start salt tabs - will follow Dr Antonio
--- NOTE | 2016-09-14 18:16 | PN ---
Progress Note, Physician History of Present Illness: The patient is a 81F with a PMH of MVP and bullous pemphigoid who presents to the ED after sustaining 2 falls. 1 week ago the patient tripped over a sidewalk which she normally walks on without problem and sustained injury to her R knee. She saw her PCP who prescribed tramadol and prednisone to help with swelling. This morning she rolled out of bed onto her L elbow and sustained a laceration to her L eyebrow, 2 cm in length. She states that she's had recent loss of balance. No LOC, blood thinners, no lightheadedness with today's fall. Allergies: NKDA Soc: Lives by herself, has an aide but family states she is taking less care of herself. - Current Medication List Current Medications: Active Medications Acetaminophen (Tylenol -) 650 mg PO Q4H PRN PRN Reason: FEVER OR PAIN Bisacodyl (Dulcolax Suppository -) 10 mg RC PRN PRN PRN Reason: no bowel movement Last Admin: 09/14/16 14:19 Dose: 10 mg Ciprofloxacin (Ciloxan 0.3% Eye Drops -) 2 drop OS Q4HWA [facility] Last Admin: 09/14/16 14:27 Dose: 2 drop Moxifloxacin HCl (Vigamox 0.5% Eye Drops -) 1 drop OD DAILY [facility] Last Admin: 09/14/16 10:27 Dose: 1 drop Mycophenolate Mofetil (Cellcept -) 500 mg PO MoWeFr@1000 [facility] Prednisone (Deltasone -) 5 mg PO BID [facility] Last Admin: 09/14/16 10:26 Dose: 5 mg Sodium Chloride (Sodium Chloride Tablet -) 1 gm PO BID [facility] Timolol Maleate (Timoptic 0.5%) 1 drop OS TID [facility] Last Admin: 09/14/16 14:17 Dose: 1 drop Tramadol HCl (Ultram -) 50 mg PO BID PRN PRN Reason: PAIN Last Admin: 09/14/16 03:10 Dose: 50 mg - Objective Vital Signs: Vital Signs Temperature 98.1 F 09/14/16 15:19 Pulse Rate 69 09/14/16 15:19 Respiratory Rate 17 09/14/16 15:19 Blood Pressure 99/62 09/14/16 15:19 O2 Sat by Pulse Oximetry (%) 97 09/14/16 10:30 Labs: CBC, BMP 09/13/16 08:20 09/14/16 06:40
[2016-09-14] MEDS: SODIUM CHLORIDE 1 GM TABLET PO SCH (21:03)
[2016-09-15] MEDS ORDERED: PT OWN MED DRAWER 7, Y5N ONE (07:01)
[2016-09-15] MEDS: TIMOLOL 0.5% OPHTHALMIC SOL 5 ML BOTTLE OS SCH ×2 (07:03→13:46)
[2016-09-15] MEDS: CIPROFLOXACIN HCL 0.3% OPHTH 2.5ML BOTTLE OS SCH ×3 (07:03→13:46)
[2016-09-15 08:04] LABS: MCH 29.4 pg (25.7-33.7); MCHC 32.9 g/dl (32.0-36.0); MEAN CELL VOLUME 89.4 fl (80-96); MEAN PLT VOLUME 7.5 fl (7.5-11.1); PLATELET COUNT 353 K/MM3 (134-434); RDW 13.5 % (11.6-15.6); WHITE BLOOD COUNT 22.4 K/mm3 (4.0-10.0)
[2016-09-15 08:27] LABS: ALBUMIN 2.3 g/dl (3.4-5.0); ANION GAP 7 (8-16); CALCIUM 7.7 mg/dL (8.5-10.1); CO2 27 mmol/L (21-32); GLUCOSE,RANDOM 85 mg/dL (74-106)
[2016-09-15 08:30] LABS: ALK PHOS 52 U/L (45-117); BILIRUBIN,TOTAL 0.9 mg/dL (0.2-1.0); CREATININE 0.2 mg/dL (0.55-1.02); SGOT/AST 16 U/L (15-37); SGPT/ALT 22 U/L (12-78); TOT PROT 4.7 g/dl (6.4-8.2)
[2016-09-15] MEDS ORDERED: MYCOPHENOLATE MOFETIL 500 MG TABLET PO SCH (10:00)
[2016-09-15] MEDS: SODIUM CHLORIDE 1 GM TABLET PO SCH (10:42)
[2016-09-15] MEDS: predniSONE 5 MG TABLET (UD) PO SCH (10:42)
[2016-09-15] MEDS: MOXIFLOXACIN HCL 0.5% OPHTHALMIC 3 ML BOTTLE OD SCH (10:47)
--- NOTE | 2016-09-15 10:52 | PN ---
Progress Note (short form) - Note Progress Note: s: no cp sob palps dizzy o: Vital Signs Period Temp Pulse Resp BP Sys/Del Toro Pulse Ox Last 24 Hr 97.6 F-98.5 F 64-88 17-19 99-112/51-68 94-96 nad no jvd rrr s1s2 no r/g, +mr murmur cta bl nl eff aao3 no le e/c/c abd nt nd pos bs no jaundice diaphoresis Current Medications Generic Name Dose Route Start Last Admin Trade Name Freq PRN Reason Stop Dose Admin Acetaminophen 650 mg 09/10/16 19:59 09/15/16 07:08 Tylenol - PO 650 mg Q4H PRN Administration FEVER OR PAIN Bisacodyl 10 mg 09/10/16 19:51 09/14/16 14:19 Dulcolax Suppository - RC 10 mg PRN PRN Administration no bowel movement Ciprofloxacin 2 drop 09/11/16 18:00 09/15/16 10:41 Ciloxan 0.3% Eye Drops - OS 2 drop Q4HWA FREDI Administration Moxifloxacin HCl 1 drop 09/11/16 10:00 09/15/16 10:47 Vigamox 0.5% Eye Drops - OD 1 drop DAILY FREDI Administration Mycophenolate Mofetil 500 mg 09/15/16 10:00 09/15/16 10:42 Cellcept - PO 500 mg MoWeFr@1000 FREDI Administration Prednisone 5 mg 09/13/16 10:00 09/15/16 10:42 Deltasone - PO 5 mg BID FREDI Administration Sodium Chloride 1 gm 09/14/16 22:00 09/15/16 10:42 Sodium Chloride Tablet - PO 1 gm BID FREDI Administration Timolol Maleate 1 drop 09/13/16 22:00 09/15/16 07:03 Timoptic 0.5% OS 1 drop TID FREDI Administration CBC, BMP 09/15/16 07:47 09/15/16 07:47 tele: sr echo 09/2016: nl lv/rv, 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 mechanical falls: -no indication of cardiac involvement -planned to go to rehab sev mr: -pt has hx of severe asymptomatic MR -stable findings on echo here -outpt f/u with dr fleming hyponatremia: -improving, renal following cardiac candelario stable for dc
--- NOTE | 2016-09-15 11:04 | DS ---
Physical Examination Vital Signs: Vital Signs Temperature 97.6 F 09/15/16 09:00 Pulse Rate 88 09/15/16 09:00 Respiratory Rate 19 09/15/16 09:00 Blood Pressure 112/68 09/15/16 09:00 O2 Sat by Pulse Oximetry (%) 94 L 09/15/16 09:00 Cardiovascular: Yes: Regular Rate and Rhythm, Murmur Respiratory: Yes: Regular, CTA Bilaterally Gastrointestinal: Yes: Normal Bowel Sounds, Soft Labs: CBC, BMP 09/15/16 07:47 09/15/16 07:47 Discharge Summary Reason For Visit: FRACTURE OF BONE; HYPONATREMIA; HYPOKALEMIA Current Active Problems Abnormal CXR (Acute) Bullous pemphigoid (Acute) Closed olecranon fracture (Acute) Edema (Acute) Fracture (Acute) Heart murmur (Acute) Hypokalemia (Acute) Hyponatremia (Acute) Leukocytosis (Acute) Patellar fracture (Acute) Protein calorie malnutrition (Acute) Valvular heart disease (Acute) Hospital Course: The patient is a 81F with a PMH of MVP and bullous pemphigoid who presented to the ED after sustaining 2 falls. 1 week ago the patient tripped over a sidewalk which she normally walks on without problem and sustained injury to her R knee. She saw her PCP who prescribed tramadol and dexamethasone to help with swelling. She is already on prednisone for bullous pemphigoid. Yesterday morning she rolled out of bed onto her L elbow and sustained a laceration to her L eyebrow, 2 cm in length. She states that she's had recent loss of balance. No LOC, blood thinners, no lightheadedness with today's fall. History Source: Patient, Medical Record Limitations to Obtaining History: No Limitations - Past Medical History Cardiovascular: Yes: Mitral Insufficiency Infectious Disease: Yes: Other (SINUSITIS) Dermatology: Yes: Other (BOLLOUS PEMPHIGOID) - Advance Directives Advance Directives: Yes: Health Care Proxy, DNR Problems (1) Fracture Assessment/Plan: -right comminuted fracture of patella with intra-articular involvement -left avulsion fracture of ulnar olecranon with significant surrounding soft tissue edema -seen by orthopedist -follow up out patient in 3 weeks Code(s): T14.8 - OTHER INJURY OF UNSPECIFIED BODY REGION (2) Hypokalemia Assessment/Plan: -normalized -seen by renal -repeat labs in AM Code(s): E87.6 - HYPOKALEMIA (3) Hyponatremia Assessment/Plan: improving, continue to monitor labs in AM Code(s): E87.1 - HYPO-OSMOLALITY AND HYPONATREMIA (4) Severe protein-calorie malnutrition Assessment/Plan: -to be seen by RD -encourage po intake Code(s): E43 - UNSPECIFIED SEVERE PROTEIN-CALORIE MALNUTRITION (5) Valvular heart disease Assessment/Plan: seen by cardiology echo done, EF 74.5%, VALVULAR DS--CHRONIC Code(s): I38 - ENDOCARDITIS, VALVE UNSPECIFIED (6) Leukocytosis Assessment/Plan: leukemoid reaction likely secondary to steroids UC negative Code(s): D72.829 - ELEVATED WHITE BLOOD CELL COUNT, UNSPECIFIED Assessment/Plan -IV fluids -monitor labs -Nephrology and cardiology consult appreciated -orthopedic consult -follow up outpatient in 3 weeks for possible surgical intervention for left elbow. -Nutrition consult -DNR -safety precautions -cipro ophthalmic -immobilizer when out of bed, remove while in bed -seen by ID for leukocytosis - SEEN BY PHYSICAL THERAPY. -d/c TO SNF Condition: Stable - Instructions Referrals: Mario Ng MD [Primary Care Provider] - Disposition: [facility] - Home Medications Comprehensive Discharge Medication List: Ambulatory Orders Bisacodyl Suppository [Dulcolax Suppository -] 10 mg RC PRN PRN 09/10/16 Dorzolamide HCl [Trusopt 2% -] 1 drop TID 09/10/16 Furosemide [Lasix] 20 mg PO DAILY 09/10/16 Moxifloxacin HCl [Vigamox 0.5% -] 3 ml OD DAILY 09/10/16 Prednisolone 1% Ophthalmic [Pred Forte 1% -] 5 ml OP DAILY 09/10/16 Timolol 0.5% [Timoptic 0.5%] 1 drop OS DAILY 09/10/16 Tramadol HCl 50 mg PO BID PRN 09/10/16 Acetaminophen [Tylenol .Regular Strength -] 650 mg PO Q4H PRN #0 tablet Mycophenolate Mofetil [Cellcept -] 500 mg PO MoWeFr@1000 tablet 09/15/16 Prednisone [Deltasone -] 5 mg PO BID tablet 09/15/16
[2016-09-15 13:35] LABS: METAMYELOCYTE 3 % (0-2); PLATELET ESTIMATE ADEQUATE (NORMAL)
--- NOTE | 2016-09-15 13:44 | PN ---
Progress Note, Physician History of Present Illness: Pt seen and examined at bedside. She is awake and alert. She denies headache or change in vision. - Current Medication List Current Medications: Active Medications Acetaminophen (Tylenol -) 650 mg PO Q4H PRN PRN Reason: FEVER OR PAIN Last Admin: 09/15/16 07:08 Dose: 650 mg Bisacodyl (Dulcolax Suppository -) 10 mg RC PRN PRN PRN Reason: no bowel movement Last Admin: 09/14/16 14:19 Dose: 10 mg Ciprofloxacin (Ciloxan 0.3% Eye Drops -) 2 drop OS Q4HWA [facility] Last Admin: 09/15/16 10:41 Dose: 2 drop Moxifloxacin HCl (Vigamox 0.5% Eye Drops -) 1 drop OD DAILY [facility] Last Admin: 09/15/16 10:47 Dose: 1 drop Mycophenolate Mofetil (Cellcept -) 500 mg PO MoWeFr@1000 [facility] Last Admin: 09/15/16 10:42 Dose: 500 mg Prednisone (Deltasone -) 5 mg PO BID [facility] Last Admin: 09/15/16 10:42 Dose: 5 mg Sodium Chloride (Sodium Chloride Tablet -) 1 gm PO BID [facility] Last Admin: 09/15/16 10:42 Dose: 1 gm Timolol Maleate (Timoptic 0.5%) 1 drop OS TID [facility] Last Admin: 09/15/16 07:03 Dose: 1 drop - Objective Vital Signs: Vital Signs Temperature 97.6 F 09/15/16 09:00 Pulse Rate 88 09/15/16 09:00 Respiratory Rate 19 09/15/16 09:00 Blood Pressure 112/68 09/15/16 09:00 O2 Sat by Pulse Oximetry (%) 94 L 09/15/16 09:00 Constitutional: Yes: Calm Eyes: Yes: Conjunctiva Clear HENT: Yes: Atraumatic Cardiovascular: Yes: S1, S2 Respiratory: Yes: CTA Bilaterally Gastrointestinal: Yes: Soft Genitourinary: Yes: Incontinence Musculoskeletal: Yes: Other (left shoulder pain) Edema: No Neurological: Yes: Oriented Psychiatric: Yes: Oriented Labs: CBC, BMP 09/15/16 07:47 09/15/16 07:47 Problem List - Problems (1) Bullous pemphigoid Code(s): L12.0 - BULLOUS PEMPHIGOID (2) Hypokalemia Code(s): E87.6 - HYPOKALEMIA (3) Hyponatremia Code(s): E87.1 - HYPO-OSMOLALITY AND HYPONATREMIA Assessment/Plan Current Medications Generic Name Dose Route Start Last Admin Trade Name Davideq PRN Reason Stop Dose Admin Acetaminophen 650 mg 09/10/16 19:59 09/15/16 07:08 Tylenol - PO 650 mg Q4H PRN Administration FEVER OR PAIN Bisacodyl 10 mg 09/10/16 19:51 09/14/16 14:19 Dulcolax Suppository - RC 10 mg PRN PRN Administration no bowel movement Ciprofloxacin 2 drop 09/11/16 18:00 09/15/16 10:41 Ciloxan 0.3% Eye Drops - OS 2 drop Q4HWA FREDI Administration Moxifloxacin HCl 1 drop 09/11/16 10:00 09/15/16 10:47 Vigamox 0.5% Eye Drops - OD 1 drop DAILY FREDI Administration Mycophenolate Mofetil 500 mg 09/15/16 10:00 09/15/16 10:42 Cellcept - PO 500 mg MoWeFr@1000 FREDI Administration Prednisone 5 mg 09/13/16 10:00 09/15/16 10:42 Deltasone - PO 5 mg BID FREDI Administration Sodium Chloride 1 gm 09/14/16 22:00 09/15/16 10:42 Sodium Chloride Tablet - PO 1 gm BID FREDI Administration Timolol Maleate 1 drop 09/13/16 22:00 09/15/16 07:03 Timoptic 0.5% OS 1 drop TID FREDI Administration Selected Entries 09/15/16 09:00 Blood Pressure 112/68 Impression 1. hyponatremia 2. hypokalemia 3. valvular heard disease 4. arm fracture 5. s/p fall 6. malnutrition 7. Bullous pemphigoid. Plan - sodium improving - cont salt tabs - avoid thiazides - will need to check sodium level in MD Dr Antonio
[2016-09-15 14:00] VITALS: BP 110/70; PULSE 74; TEMP 97.9
== END 2016-09-15 13:52 | DRG 562 ==
LOC: SUPCPDRO 12:29 → JER 12:29 → JERBED 16:44 → J4S 18:40
PROVIDERS: ADMIT Family Medicine; ATTEND Family Medicine
DX: S52.023A Displaced fracture of olecranon process without intraarticular extension of unspecified ulna, initial encounter for closed fracture (principal); E43 Unspecified severe protein-calorie malnutrition; S82.041A Displaced comminuted fracture of right patella, initial encounter for closed fracture; E87.1 Hypo-osmolality and hyponatremia; L12.0 Bullous pemphigoid; E46 Unspecified protein-calorie malnutrition; Z68.1 Body mass index [BMI] 19.9 or less, adult; W19.XXXA Unspecified fall, initial encounter; Y93.9 Activity, unspecified; Y92.480 Sidewalk as the place of occurrence of the external cause; Y99.9 Unspecified external cause status; E87.6 Hypokalemia; D72.829 Elevated white blood cell count, unspecified; I34.0 Nonrheumatic mitral (valve) insufficiency; I27.2 Other secondary pulmonary hypertension; I50.9 Heart failure, unspecified
CPT/HCPCS: 36415; 70450-TC; 71010-TC; 73070-TC-LT; 73562-TC-RT; 74000-TC; 80048; 80053; 80061; 81003; 82436; 82533; 83721; 83735; 83880; 83930; 83935; 84133; 84300; 84443; 84484; 84550; 85025; 85027; 87086; 90715; 93005; 93010; 93306-TC; 93880-TC; 93971-TC; 97116-GP; 97162-GP; 99284-25; J7517

== ENCOUNTER 2016-10-05 06:54 | Day surgery (SDC) | payer OTHER, MEDICARE ==
[2016-10-04 16:04] VITALS: BMI 15.6
[2016-10-05] MEDS ORDERED: SUCCINYLCHOLINE CHLORIDE 200 MG/10 ML VIAL ONE (07:53)
[2016-10-05] MEDS ORDERED: PROPOFOL 20 ML ONE (07:53)
[2016-10-05] MEDS ORDERED: ROCURONIUM BROMIDE 50 MG/5 ML VIAL ONE (07:53)
[2016-10-05] MEDS ORDERED: LIDOCAINE HCL/PF 2% SDV 5ML VIAL ONE (07:53)
[2016-10-05] MEDS ORDERED: ROPIVACAINE HCL 0.5% 30ML VIAL ONE (08:16)
[2016-10-05] MEDS ORDERED: MIDAZOLAM HCL 2 MG/2 ML SINGLE DOSE VIAL ONE ×2 (08:18)
[2016-10-05] MEDS ORDERED: ePHEDrine SULFATE 50 MG/1 ML AMPULE ONE (09:05)
[2016-10-05] MEDS ORDERED: ceFAZolin SODIUM 1 GM VIAL IVPB ONE (09:19)
[2016-10-05] MEDS ORDERED: DEXAMETHASONE SOD PHOSPHATE 4 MG/1 ML VIAL ONE (09:25)
[2016-10-05] MEDS ORDERED: ceFAZolin SODIUM 1 GM VIAL ONE (09:25)
[2016-10-05] MEDS ORDERED: DESFLURANE GAS 240 ML BOTTLE IH ONE (09:32)
[2016-10-05] MEDS ORDERED: NEOSTIGMINE METHYLSULFATE 0.5 MG/ML - 10 ML MDV ONE (10:34)
[2016-10-05] MEDS ORDERED: morphine CARPU-JECT 2 MG/1 ML DISP.SYRIN IVPUSH PRN (12:45)
[2016-10-05] MEDS ORDERED: ONDANSETRON 4 MG/2 ML VIAL IVPUSH PRN (13:49)
--- NOTE | 2016-10-05 14:07 | OP ---
DATE OF OPERATION: 10/05/2016 PREOPERATIVE DIAGNOSIS: Left displaced olecranon fracture, right displaced patella fracture. PROCEDURE: Left olecranon open reduction internal fixation, right patella open reduction internal fixation. SURGEON: Shaun Lora MD MONORAIL CRANE OPERATOR: Jimmie Ramirez, physician assessment whose skilled full assistance was necessary for the safe and timely performance of this procedure. Mr. Ramirez was able to provide limb positioning, retraction, assist in fracture reduction, assistance in insertion of orthopaedic instruments. IMPLANTS: [place] 4.0 cannulated screws x3 in the right patella, Synthes 3.5- mm hook plate with associated cortical and cancellous screws in the elbow. TOURNIQUET TIME: On the elbow was 1 hour. On the patella was 83 minutes. POSTOPERATIVE CONDITION: Stable. COMPLICATIONS: None. INDICATIONS: This is a pleasant woman who suffered 2 falls resulting in a displaced olecranon fracture and a nondisplaced patella fracture. On follow up, her patella fracture was found to be displaced. Given the displaced nature of both fractures, operative care was indicated. Treatment options including nonoperative care with loss of extensor function of both the elbow and patella as well as posttraumatic arthrosis was discussed. We discussed that operative management would allow for restorationism of extensor function. We would try to approximate the articular surface as best possible. We discussed that given her bone quality, it could be anticipated that perfect articular reduction would not be possible, and some degree of posttraumatic arthrosis would be present. We reviewed the operative procedure on both the elbow and the knee. We discussed the orthopaedic hardware was being inserted to help maintain the fracture in a proper position for itself to heal. There is always the possibility that the hardware will fail or the reduction could be lost or proper reduction could not be achieved. We discussed other surgical risks including bleeding, infection, nonunion, breakdown. We discussed medical risks such as heart attack, stroke, DVT, PE, or . We discussed possible loss of life or limb. We reviewed perioperative use of antibiotic prophylaxis. We reviewed perioperative use of DVT prophylaxis. I addressed all of the patient's questions. She voiced understanding and elected to proceed. DESCRIPTION OF PROCEDURE: The patient was brought to the operating room after administration of regional blocks in the preoperative holding area. General anesthesia was then administered. Initially attention was turned to the left upper extremity. The left upper extremity was prepped and draped in the usual sterile fashion. A preoperative dose of antibiotics was given. The usual time-out procedure was performed. At this point, the limb was exsanguinated. Tourniquet was inflated to 200 mmHg. The incision was now planned out posteriorly over the olecranon turning laterally to avoid incision directly over the olecranon prominence. This was carried through the skin and subcutaneous tissue. Blunt spreading was used to expose the fracture. Moderate comminution was present. The loose fragments were excised. A fracture reduction clamp was now applied to the fracture, and fluoroscopy was used to confirm reduction. A 2-0 K-wire was used to maintain the reduction temporarily. The olecranon hook was now applied to the bone and tamped into the tip of the olecranon. The plate was then fixed to bone using a 3.5-mm screw in compression mode. The fracture reduction and hardware placement were now verified both visually and fluoroscopy, and both were satisfactory. Three additional screws were placed into the shaft of the bone. Finally, the most proximal ulnar plate was filled utilizing a further 3.5 cortical screw. After this, the entire construct was examined one more time both visually and fluoroscopically. The fracture reduction and hardware placement were satisfactory. The wound was copiously irrigated. The deep tissue was approximated using 0 Vicryl. The subcutaneous tissue was approximated using 3-0 Vicryl. The skin was closed using a running 3-0 nylon suture. The patient was placed into a long arm splint. The tourniquet was let down after an hour. The patient was now re-prepped and draped for the right lower extremity. Time-out was confirmed. The limb was now exsanguinated and tourniquet was inflated to 250 mmHg. The incision was now planned out anteriorly over the patella. This was carried down through the skin and subcutaneous tissue. Blunt spreading was used to expose the periosteum of the patella. This was then incised in line with its fibers and a flap both medially and laterally in order to expose the anterior surface of the patella. Significant comminution was encountered here. Two 2-0 K-wires were now inserted into the proximal and distal fragments to use as joystick controls. A pointed reduction clamp was used to compress along the fracture. Three K-wires from the 4-0 cannulated screw set were now passed from distal to proximal in line with the limb. K-wire placement was confirmed fluoroscopically. Each wire was then measured and drilled over utilizing the 3.0 drill bit. Each cannulated screw was now inserted, and both fracture reduction and hardware placement was verified fluoroscopically and was satisfactory. A Jaziel needle was now used to pass the No. 2 FiberWire suture through the medial and the middle screw. This was done in a figure of eight fashion and then tied to create a tension band construct. A 2nd FiberWire was now passed through the 3rd screw and used to create an additional tension band on the lateral aspect of the patella. Once again, fluoroscopy was used to confirm both fracture reduction and hardware placement. All were satisfactory. The periosteum was now closed over the anterior surface of the patella using 0 Vicryl. Subcutaneous tissue was approximated using 2-0 Vicryl. The skin was closed using running 3-0 nylon. The patient was placed into a well-padded long length cylinder cast. The tourniquet was let down after 83 minutes. She was transferred to the recovery room after extubation in stable condition. Maddi [id number] MTDD
[2016-10-05] MEDS: ACETAMINOPHEN 325 MG TABLET (FP) PO PRN (18:40)
[2016-10-05] MEDS ORDERED: PT OWN MED DRAWER 7, Y5N ONE ×2 (20:47→21:44)
[2016-10-05] MEDS: oxyCODONE HCL 5 MG TABLET PO PRN (21:18)
[2016-10-05] MEDS: TIMOLOL 0.5% OPHTHALMIC SOL 5 ML BOTTLE OS SCH (21:20)
[2016-10-05] MEDS: LACTATED RINGERS SOLUTION 1,000 ML IV SCH (21:21)
[2016-10-05] MEDS: DORZOLAMIDE 2% HCL OPHTHALMIC SOLUTION 10 ML BOTTLE OS SCH (21:25)
[2016-10-06] MEDS: oxyCODONE HCL 5 MG TABLET PO PRN ×2 (02:03→08:06)
[2016-10-06] MEDS: LACTATED RINGERS SOLUTION 1,000 ML IV SCH ×2 (02:07→07:26)
[2016-10-06] MEDS: ACETAMINOPHEN 325 MG TABLET (FP) PO PRN ×2 (04:37→08:06)
[2016-10-06 06:55] VITALS: PULSE 62
[2016-10-06] MEDS: MYCOPHENOLATE MOFETIL 500 MG TABLET PO SCH ×2 (07:26→10:38)
[2016-10-06] MEDS: CALCIUM 500MG/VIT-D 200 UNITS COMBO TABLET (FP) PO SCH ×2 (07:26→10:39)
[2016-10-06] MEDS: TIMOLOL 0.5% OPHTHALMIC SOL 5 ML BOTTLE OS SCH ×2 (07:26→10:39)
[2016-10-06] MEDS: predniSONE 5 MG TABLET (UD) PO SCH ×2 (07:26→10:38)
[2016-10-06] MEDS: BISACODYL 5 MG TABLET.DR (FP) PO SCH ×2 (07:26→10:39)
[2016-10-06] MEDS: DORZOLAMIDE 2% HCL OPHTHALMIC SOLUTION 10 ML BOTTLE OS SCH (07:27)
[2016-10-06 08:49] LABS: MCH 30.3 pg (25.7-33.7); MCHC 33.3 g/dl (32.0-36.0); MEAN CELL VOLUME 91.1 fl (80-96); PLATELET COUNT 324 K/MM3 (134-434); RDW 14.7 % (11.6-15.6); WHITE BLOOD COUNT 13.6 K/mm3 (4.0-10.0)
[2016-10-06 09:11] LABS: ANION GAP 5 (8-16); CALCIUM 8.3 mg/dL (8.5-10.1); CO2 29 mmol/L (21-32); CREATININE 0.5 mg/dL (0.55-1.02); GLUCOSE,RANDOM 114 mg/dL (74-106)
[2016-10-06 09:41] VITALS: TEMP 97.7
[2016-10-06] MEDS ORDERED: ENOXAPARIN NA (PORCINE) 40 MG/0.4 ML DISP.SYRIN SQ SCH (10:00)
[2016-10-06] MEDS ORDERED: PT OWN MED DRAWER 7, Y5N ONE (10:03)
[2016-10-06 11:15] VITALS: BP 115/57
== END 2016-10-06 13:19 ==
LOC: JASU-SURG 06:54 → J6S 18:00 → JASU-SURG 10-06 13:19
PROVIDERS: ATTEND Orthopaedic Surgery Sports Medicine
PROC: 0PSL04Z Reposition Left Ulna with Internal Fixation Device, Open Approach (ICD-10-PCS; principal; 2016-10-05 08:00)
PROC: 0QSD04Z Reposition Right Patella with Internal Fixation Device, Open Approach (ICD-10-PCS; 2016-10-05 08:00)
DX: S52.022A Displaced fracture of olecranon process without intraarticular extension of left ulna, initial encounter for closed fracture (principal); S82.091A Other fracture of right patella, initial encounter for closed fracture; W19.XXXA Unspecified fall, initial encounter; Y93.9 Activity, unspecified; Y92.9 Unspecified place or not applicable; Y99.9 Unspecified external cause status
CPT/HCPCS: 36415; 76000-TC; 80048; 85027; 94760; J7517

== ENCOUNTER 2019-11-18 17:43 | Emergency (ER) | payer OTHER, MEDICARE ==
[2019-11-18 17:53] VITALS: BP 116/34; PULSE 70; TEMP 97.3; BMI 16.6
--- NOTE | 2019-11-18 18:25 | PDOC ---
History of Present Illness - General Chief Complaint: Tremors Stated Complaint: TREMORS Time Seen by Provider: 11/18/19 18:22 - History of Present Illness Initial Comments: 11/18/19 18:23 HPI: 84 y/o F with hx of MVP and bullous pemphigoid presenting with right mandibular dental pain x2 weeks worsening since last night. She has been taking ibuprofen 400mg bid with improvement of pain however last ngiht it didnt help. She has an appt on Tue with dentist and is trying to get in tomorrow. She denies fever, chills, n/v, difficulty swallowing and she is tolerating PO. PMHx: as noted above ROS: as noted SHx: Denies tobacco use; no alcohol use; no rec drugs Allergies: NKDA ROS: GENERAL/CONSTITUTIONAL: No fever or chills. No weakness. HEAD, EYES, EARS, NOSE AND THROAT: No change in vision. No ear pain or discharge. No sore throat. CARDIOVASCULAR: No chest pain or shortness of breath RESPIRATORY: No cough, wheezing, or hemoptysis. GASTROINTESTINAL: No nausea, vomiting, diarrhea or constipation. GENITOURINARY: No dysuria, frequency, or change in urination. MUSCULOSKELETAL: No joint or muscle swelling or pain. No neck or back pain. SKIN: No rash NEUROLOGIC: No headache, vertigo, loss of consciousness, or change in st rength/sensation. ENDOCRINE: No increased thirst. No abnormal weight change HEMATOLOGIC/LYMPHATIC: No anemia, easy bleeding, or history of blood clots. ALLERGIC/IMMUNOLOGIC: No hives or skin allergy. PE: GENERAL: Awake, alert, and fully oriented, no acute distress HEAD: No signs of trauma, normocephalic, atraumatic EYES: EOMI, sclera anicteric, conjunctiva clear ENT: Auricles normal inspection, hearing grossly normal, nares patent, oropharynx clear without exudates; right mandibular gum line with mild edema and small molar periapical abscess palpated and ttp. Moist mucosa NECK: Normal ROM, no lymphadenopathy LUNGS: No increased work of breathing, symmetrical chest rise, clear to auscultation bilaterally, no wheezes, crackles or rhonchi HEART: Regular rate, regular rhythm, normal S1 and S2, no murmur, peripheral pulses 2+ and equal bilaterally. ABDOMEN: Soft, nondistended, nontender. No guarding, no rebound. No masses. No CVAT MUSCULOSKELETAL: FROM NEUROLOGICAL: Cranial nerves II through XII grossly intact. Normal speech, stable gait, no focal sensorimotor deficits SKIN: Warm, Dry, normal turgor, no rashes or lesions noted Past History - Medical History Allergies/Adverse Reactions: Allergies Allergy/AdvReac Type Severity Reaction Status Date / Time No Known Allergies Allergy Verified 11/18/19 17:53 Home Medications: Ambulatory Orders Bisacodyl Suppository [Dulcolax Suppository -] mg RC PRN PRN 09/10/16 Dorzolamide HCl [Trusopt 2% -] 1 drop OS TID 09/10/16 Timolol 0.5% [Timoptic 0.5%] 1 drop OS BID 09/10/16 Tramadol HCl 50 mg PO BID PRN 09/10/16 Bisacodyl [Dulcolax -] 5 mg PO DAILY 10/05/16 Calcium Carbonate/Vitamin D3 [Calcium 500 + Vit D 200 Caplet] 1 each PO DAILY 10/05/16 Cosopt Eye Drops 3 drop OS DAILY 10/05/16 Mycophenolate Mofetil [Cellcept -] 500 mg PO DAILY 10/05/16 Polyethylene Glycol 3350 [Miralax (For Daily Use) -] 17 gm PO DAILY 10/05/16 Pred Forte 1% - 1 drop OD DAILY 10/05/16 Sodium Chloride 1,000 mg PO BID 10/05/16 Vigamox 0.5% - 1 drop OD DAILY 10/05/16 predniSONE [Deltasone -] 5 mg PO DAILY 10/05/16 Amox-Tr/K Cl [Augmentin - 875Mg Tablet] 1 tab PO BID #14 tablet 11/18/19 Cardiac Disorders: Yes (MVP) COPD: No HTN: No (low blood pressure 100/55) Thyroid Disease: No (denies) - Psycho-Social/Smoking History Smoking History: Never smoked Have you smoked in the past 12 months: No 'Breaking Loose' booklet given: 10/30/14 *Physical Exam - Vital Signs Last Vital Signs Temp Pulse Resp BP Pulse Ox 97.3 F L 70 18 116/34 L 98 11/18/19 17:50 11/18/19 17:50 11/18/19 17:50 11/18/19 17:50 11/18/19 17:50 Medical Decision Making - Medical Decision Making 11/18/19 20:13 84 y/o F with hx of MVP and bullous pemphigoid presenting with right molar periapical abscess. VSS, AF. -local anesthetic block -augmentin DC with script for abx and return pcxns patient understands plan and all questions asnwered; agreeable with plan Discharge - Discharge Information Problems reviewed: Yes Clinical Impression/Diagnosis: Periapical abscess Condition: Improved Disposition: HOME - Additional Discharge Information Prescriptions: Amox-Tr/K Cl [Augmentin - 875Mg Tablet] 1 tab PO BID #14 tablet - Follow up/Referral Referrals: Lakshmi Durham MD [Primary Care Provider] - - Patient Discharge Instructions Patient Printed Discharge Instructions: DI for Tooth Abscess Additional Instructions: Additional Instructions: Please return to the emergency department with any new or worsening symptoms or concerns including fever, worsening pain, fainting. Please follow up with your dentist as soon as possible Please take the antibiotic Augmentin (Amoxicillin Clavalunate) 875mg/125mg twice a day for 7 days. Follow further recommendation regarding antibiotics from your dentist Please take ibuprofen 600mg every 6-8 hours as needed for pain control. You may also take tylenol 650mg every 6-8 hours as needed as well if pain is not controlled - Post Discharge Activity
--- OUTSIDE RECORDS SUMMARY | 2019-11-18 18:36 | XMS ---
:1935 Author Organization [facility] Name Relationship Address Phone RE Unavailable Unavailable Unavailable DAVE JOY SISTER [address] [facility] [place] [phone] Re-disclosure Warning The records that you are about to access may contain information from federally- assisted alcohol or drug abuse programs. If such information is present, then the following federally mandated warning applies: This information has been disclosed to you from records protected by federal confidentiality rules (42 CFR part 2). The federal rules prohibit you from making any further disclosure of this information unless further disclosure is expressly permitted by the written consent of the person to whom it pertains or as otherwise permitted by 42 CFR part 2. A general authorization for the release of medical or other information is NOT sufficient for this purpose. The Federal rules restrict any use of the information to criminally investigate or prosecute any alcohol or drug abuse patient.The records that you are about to access may contain highly sensitive health information, the redisclosure of which is protected by Article 27-F of the [facility] Public Health law. If you continue you may haveaccess to information: Regarding HIV / AIDS; Provided by facilities licensed or operated by the [facility] Office of Mental Health; or Provided by the [facility] Office for People With Developmental Disabilities. If such information is present, then the following [facility] mandated warning applies: This information has been disclosed to you from confidential records which are protected by state law. State law prohibits you from making any further disclosure of this information without the specific written consent of the person to whom it pertains, or as otherwise permitted by law. Any unauthorized further disclosure in violation of state law may result in a fine or group home sentence or both. A general authorization for the release of medical or other information is NOT sufficient authorization for further disclosure. Insurance Providers Payer name Policy type Policy ID Covered Covered libertarian's Policy P shania / Coverage libertarian ID relationship to Hunt Inf ormation type hunt [facility] [id number] [employer] [id number]
[2019-11-18] MEDS ORDERED: BUPIVACAINE HCL/PF 0.5% (5 MG/ML) 30 ML VIAL IJ ONE (19:07)
[2019-11-18] MEDS ORDERED: AMOX TR/POT CLAV 875MG/125MG TABLETS (FP) PO ONE (19:34)
[2019-11-18] MEDS ORDERED: AMOX TR/POT CLAV 875MG/125MG TABLETS (FP) ONE (20:07)
--- NOTE | 2019-11-18 20:34 | PDOC ---
Documentation entered by Gary Ba SCRIBE, acting as scribe for Yesenia Trammell MD. Yesenia Trammell MD: This documentation has been prepared by the scribe, Gary Ba SCRIBE, under my direction and personally reviewed by me in its entirety. I confirm that the documentation accurately reflects all work, treatment, procedures, and medical decision making performed by me. Attending Attestation - Resident Resident Name: DennisAlexandra - ED Attending Attestation I have performed the following: I have examined & evaluated the patient, The case was reviewed & discussed with the resident, I agree w/resident's findings & plan, Exceptions are as noted - HPI HPI: 11/18/19 20:18 The patient is an 84 year old female with a significant past medical history of MVP and bullous pemphigoid who presents to the emergency department for evaluation of right mandibular dental pain that began last year and has worsened over the past 2 weeks. The patient denies chest/abdominal/back pain, cough, and shortness of breath. Denies fever, chills, nausea, vomiting, and/or any GI symptoms. Denies any symptoms. Denies any other symptoms. Allergies: NKA - Physicial Exam PE: 11/18/19 19:46 GENERAL: Well developed, well nourished. Awake and alert. No acute distress. HEENT: Normocephalic, atraumatic. PERRLA, EOMI. No conjunctival pallor. Sclera are non- icteric. Moist mucous membranes. Oropharynx is clear. Pt has minimal swelling of her mucosa. We will treat with abx NECK: Supple. Full ROM. No JVD. Carotid pulses 2+ and symmetric, without bruits. No thyromegaly. No lymphadenopathy. CARDIOVASCULAR: Regular rate and rhythm. No murmurs, rubs, or gallops. Distal pulses are 2+ and symmetric. PULMONARY: No evidence of respiratory distress. Lungs clear to auscultation bilaterally. No wheezing, rales or rhonchi. ABDOMINAL: Soft. Non-tender. Non-distended. No rebound or guarding. No organomegaly. Normoactive bowel sounds. MUSCULOSKELETAL: Normal range of motion at all joints. No bony deformities or tenderness. No CVA tenderness. EXTREMITIES: No cyanosis. No clubbing. No edema. No calf tenderness. SKIN: Warm and dry. Normal capillary refill. No rashes. No jaundice. NEUROLOGICAL: Alert, awake, appropriate. Cranial nerves 2-12 intact. No deficits to light touch and temperature in face, upper extremities and lower extremities. No motor deficits in the in face, upper extremities and lower extremities. Normoreflexic in the upper and lower extremities. Normal speech. Toes are down-going bilaterally. Gait is normal without ataxia. PSYCHIATRIC: Cooperative. Good eye contact. Appropriate mood and affect. - Medical Decision Making 11/18/19 20:34 Pt given a gingival block and she will be sent home with pain meds OTC and abx and she needs to follow with dental Discharge - Discharge Information Problems reviewed: Yes Clinical Impression/Diagnosis: Periapical abscess Disposition: HOME - Additional Discharge Information Prescriptions: Amox-Tr/K Cl [Augmentin - 875Mg Tablet] 1 tab PO BID #14 tablet - Follow up/Referral Referrals: Lakshmi Durham MD [Primary Care Provider] - - Patient Discharge Instructions Patient Printed Discharge Instructions: DI for Tooth Abscess Additional Instructions: Additional Instructions: Please return to the emergency department with any new or worsening symptoms or concerns including fever, worsening pain, fainting. Please follow up with your dentist as soon as possible Please take the antibiotic Augmentin (Amoxicillin Clavalunate) 875mg/125mg twice a day for 7 days. Follow further recommendation regarding antibiotics from your dentist Please take ibuprofen 600mg every 6-8 hours as needed for pain control. You may also take tylenol 650mg every 6-8 hours as needed as well if pain is not controlled - Post Discharge Activity
== END 2019-11-18 20:11 | disposition home or self-care (01) ==
LOC: JER 17:43
DX: K04.7 Periapical abscess without sinus (principal)
CPT/HCPCS: 99284-25